=== PATIENT | male | born 1945 | race Hispanic/Latino ===

== ENCOUNTER 2022-01-16 10:06 | Inpatient (IN) | payer MEDICARE, MEDICAID ==
[2022-01-16 10:42] LABS: #Eosinphils 0.1 10x3/uL (0.0-0.5); #Monocytes 0.2 10x3/uL (0.0-1.1); #Neutrophils 11.8 10x3/uL (1.5-8.4); %Basophils 0.3 % (0.0-2.0); %Eosinophils 0.4 % (0.0-6.0); %Lymphocytes 4.8 % (18.0-47.0); %Monocytes 1.7 % (0.0-10.0); %Neutrophils 92.3 % (40.0-75.0); Hemoglobin 10.3 g/dL (13.5-17.5); Mean Corpuscular HGB CONC 33.6 g/dL (32.0-36.0); Mean Corpuscular Hemoglobin 29.5 pg (27.0-33.0); Mean Platelet Volume 9.7 fl (7.4-10.4); Platelet Count 323 10x3/uL (150-450); RBC Distribution Width 11.6 % (11.5-14.5); Red Blood Cell (RBC) Count 3.49 10x6/uL (4.32-5.72); White Blood Cell (WBC) Count 12.8 10x3/uL (3.5-10.5)
[2022-01-16 10:48] LABS: ALT (SGPT) 10 U/L (8-55); AST (SGOT) 10 U/L (5-34); Alkaline Phosphatase 109 U/L (40-110); Anion Gap 18 mmol/L (10-20); BUN (Urea Nitrogen) 26 mg/dL (8.4-25.7); Bilirubin, Total 0.9 mg/dL (0.2-1.2); Calc. Creatinine Clearance 0 mL/min (70-130); Calcium 8.5 mg/dL (7.8-10.44); Carbon Dioxide 20 mmol/L (23-31); Chloride 98 mmol/L (98-107); Globulin 3.2 g/dL (2.4-3.5); Glucose 396 mg/dL (83-110); Protein, Total 6.2 g/dL (5.8-8.1); Sodium 132 mmol/L (136-145)
[2022-01-16 10:51] LABS: PTT 23.4 sec (22.0-33.0); Prothrombin Time 10.8 sec (9.5-12.1)
[2022-01-16 11:20] LABS: SARS-CoV-2 NAA Rapid Test DETECTED (NotDetected)
[2022-01-16 11:29] LABS: Bilirubin Neg (Negative); Blood, Urine 50 (Negative); Clarity Cloudy (Clear); Glucose, Urine (Dipstick) >=1000 mg/dL (Negative); Ketone, Urine Negative (Negative); Leukocyte 500 (Negative); Nitrite Negative (Negative); Protein, Urine (Dipstick) 100 mg/dl (Neg-Trace); Specific Gravity, Urine 1.015 (1.002-1.036); Urobilinogen Normal mg/dL (Less than 2)
[2022-01-16 11:44] LABS: Squamous Epithelial 0-3 HPF (0-3); WBC/HPF Greater Than 50 HPF (0-3)
[2022-01-16 11:45] LABS: Bacteria/HPF 4+ HPF (None Seen)
[2022-01-16] MEDS ORDERED: Dextrose 50% Abboject 50 ML SYRINGE SLOW IVP PRN (12:28)
[2022-01-16] MEDS ORDERED: Ondansetron PF 4 MG/2 ML Vial IVP PRN (12:28)
[2022-01-16] MEDS ORDERED: Dextrose 5% in Water 1,000 ML IV PRN (12:28)
[2022-01-16] MEDS ORDERED: Acetaminophen 650 MG Suppository PR PRN (12:28)
[2022-01-16] MEDS ORDERED: Ondansetron ODT 4 MG TAB PO PRN (12:28)
[2022-01-16] MEDS ORDERED: Ventolin HFA Inhaler 60 PUFF INHALER INH PRN (12:41)
[2022-01-16] MEDS ORDERED: cefTRIAXone\\ROCEPHIN 2 GM VIAL ONE (12:51)
[2022-01-16 13:13] LABS: Lactic Acid 2.4 mmol/L (0.5-2.2)
[2022-01-16 14:36] VITALS: BMI 29.5
[2022-01-16 14:53] LABS: Troponin I 0.039 ng/mL (< 0.028)
[2022-01-16] MEDS ORDERED: Labetalol HCl 100 MG/20 ML VIAL ONE (15:41)
[2022-01-16] MEDS ORDERED: Aspirin 325 MG TAB ONE (15:46)
[2022-01-16] MEDS ORDERED: Labetalol HCl 100 MG/20 ML VIAL SLOW IVP PRN (15:51)
[2022-01-16 16:56] LABS: Troponin I 0.057 ng/mL (< 0.028)
[2022-01-16] MEDS: Sodium Chloride 0.9% 1,000 ML IV SCH ×2 (17:27→22:16)
[2022-01-16 19:36] LABS: Troponin I 0.116 ng/mL (< 0.028)
[2022-01-16] MEDS: Famotidine 20 MG TAB PO SCH (20:08)
[2022-01-16] MEDS: Acetaminophen 325 MG TAB PO PRN (20:09)
[2022-01-16] MEDS: Benzonatate 100 MG CAP PO PRN (20:09)
[2022-01-16] MEDS: Atorvastatin Calcium 20 MG TAB PO SCH (20:10)
[2022-01-16] MEDS: HumaLOG 300 UNITS/3 ML VIAL SC PRN (20:10)
[2022-01-16] MEDS ORDERED: Sodium Chloride 0.9% 500 ML IV SCH (22:00)
[2022-01-16 22:55] LABS: Troponin I 0.129 ng/mL (< 0.028)
[2022-01-17 05:16] LABS: ALT (SGPT) 7 U/L (8-55); AST (SGOT) 13 U/L (5-34); Albumin 2.5 g/dL (3.4-4.8); Alkaline Phosphatase 85 U/L (40-110); Anion Gap 16 mmol/L (10-20); BUN (Urea Nitrogen) 30 mg/dL (8.4-25.7); Bilirubin, Total 0.4 mg/dL (0.2-1.2); Calc. Creatinine Clearance 42 mL/min (70-130); Calcium 7.7 mg/dL (7.8-10.44); Carbon Dioxide 19 mmol/L (23-31); Chloride 103 mmol/L (98-107); Glucose 344 mg/dL (83-110); Potassium 4.2 mmol/L (3.5-5.1); Protein, Total 5.5 g/dL (5.8-8.1); Sodium 134 mmol/L (136-145)
[2022-01-17] MEDS: HumaLOG 300 UNITS/3 ML VIAL SC PRN ×4 (05:36→21:40)
[2022-01-17 08:34] LABS: Hemoglobin 9.5 g/dL (13.5-17.5); Mean Corpuscular HGB CONC 35.4 g/dL (32.0-36.0); Mean Corpuscular Hemoglobin 30.6 pg (27.0-33.0); Mean Corpuscular Volume 86.5 fl (81.2-95.1); Mean Platelet Volume 10.4 fl (7.4-10.4); RBC Distribution Width 12.2 % (11.5-14.5)
[2022-01-17 08:35] LABS: MDiff Complete? YES; Platelet Count 247 10x3/uL (150-450)
[2022-01-17] MEDS: Enoxaparin Sodium 30 MG/0.3 ML SYRINGE SC SCH (08:38)
[2022-01-17] MEDS: Sodium Chloride 0.9% 1,000 ML IV SCH ×2 (08:40→17:34)
[2022-01-17] MEDS: Citalopram 20 MG TAB PO SCH (08:40)
[2022-01-17 08:49] LABS: Band 29 % (5-11); Lymphocytes 4 % (21-51); Monocytes 5 % (0-10); Neutrophil 61 % (42-75); Reactive Lymphocytes 1 % (0-10)
[2022-01-17 08:50] LABS: Platelet Morphology Comment Appears Adequate
[2022-01-17 08:52] LABS: RBC Morphology Normal
[2022-01-17] MEDS ORDERED: Furosemide 20 MG TAB PO SCH (09:00)
[2022-01-17] MEDS ORDERED: Lisinopril 5 MG TAB PO SCH (09:00)
[2022-01-17] MEDS ORDERED: Dexamethasone 6 MG in Sodium Chloride 0.9% 50 ML IVPB SCH (09:13)
[2022-01-17] MEDS: Doxycycline 100 MG in Sodium Chloride 0.9% 100 ML IVPB SCH ×2 (11:27→20:00)
[2022-01-17] MEDS ORDERED: cefTRIAXone\\ROCEPHIN 2 GM in Sodium Chloride 0.9% 100 ML IVPB SCH (12:00)
[2022-01-17] MEDS ORDERED: cefTRIAXone\\ROCEPHIN 1 GM in Sodium Chloride 0.9% 100 ML IVPB SCH (12:00)
[2022-01-17] MEDS ORDERED: Meropenem 1 GM in Sodium Chloride 0.9% 100 ML IVPB SCH (13:00)
[2022-01-17] MEDS: Atorvastatin Calcium 20 MG TAB PO SCH (21:39)
[2022-01-17] MEDS: Famotidine 20 MG TAB PO SCH (21:39)
[2022-01-17] MEDS: Acetaminophen 325 MG TAB PO PRN (21:39)
[2022-01-17] MEDS: Meropenem 1 GM in Sodium Chloride 0.9% 100 ML IVPB SCH (21:40)
[2022-01-17] MEDS: Benzonatate 100 MG CAP PO PRN (21:42)
[2022-01-18] MEDS: Acetaminophen 325 MG TAB PO PRN ×2 (02:01→21:50)
[2022-01-18 04:15] LABS: Hemoglobin 9.1 g/dL (13.5-17.5); Mean Corpuscular HGB CONC 33.7 g/dL (32.0-36.0); Mean Corpuscular Hemoglobin 30.1 pg (27.0-33.0); Mean Corpuscular Volume 89.4 fl (81.2-95.1); Mean Platelet Volume 10.4 fl (7.4-10.4); Platelet Count 219 10x3/uL (150-450); RBC Distribution Width 12.1 % (11.5-14.5); Red Blood Cell (RBC) Count 3.02 10x6/uL (4.32-5.72); White Blood Cell (WBC) Count 30.2 10x3/uL (3.5-10.5)
[2022-01-18 04:32] LABS: Anion Gap 16 mmol/L (10-20); BUN (Urea Nitrogen) 28 mg/dL (8.4-25.7); CRP (Inflammatory) 23.19 mg/dL (= or < 0.5); Calc. Creatinine Clearance 53 mL/min (70-130); Calcium 7.6 mg/dL (7.8-10.44); Carbon Dioxide 17 mmol/L (23-31); Chloride 104 mmol/L (98-107); Glucose 259 mg/dL (83-110); Potassium 3.7 mmol/L (3.5-5.1); Sodium 133 mmol/L (136-145)
[2022-01-18] MEDS: Sodium Chloride 0.9% 1,000 ML IV SCH ×3 (04:44→21:48)
[2022-01-18] MEDS: HumaLOG 300 UNITS/3 ML VIAL SC PRN ×3 (05:11→21:51)
[2022-01-18 05:23] LABS: MDiff Complete? YES
[2022-01-18 05:29] LABS: Band 15 % (5-11); Eosinophils 2 % (0-10); Lymphocytes 4 % (21-51); Metamyelocyte 6 % (0-0); Monocytes 6 % (0-10); Neutrophil 67 % (42-75)
[2022-01-18 05:31] LABS: Platelet Morphology Comment Appears Adequate; RBC Morphology Normal
[2022-01-18] MEDS ORDERED: BARICITINIB 2 MG TAB PO SCH (09:00)
[2022-01-18] MEDS ORDERED: Dexamethasone 4 mg/ml Vial SLOW IVP SCH (09:00)
[2022-01-18] MEDS ORDERED: Enoxaparin Sodium 30 MG/0.3 ML SYRINGE ONE (09:14)
[2022-01-18] MEDS: Enoxaparin Sodium 30 MG/0.3 ML SYRINGE SC SCH (09:44)
[2022-01-18] MEDS: Doxycycline 100 MG in Sodium Chloride 0.9% 100 ML IVPB SCH ×2 (09:44→20:40)
[2022-01-18] MEDS: Ascorbic Acid 500 mg Chewable Tablet PO SCH (09:44)
[2022-01-18] MEDS: Citalopram 20 MG TAB PO SCH (09:44)
[2022-01-18] MEDS: Zinc Sulfate 220 MG CAP PO SCH (09:44)
[2022-01-18] MEDS: Cholecalciferol (Vitamin D3) 400 UNITS TAB PO SCH (09:44)
[2022-01-18] MEDS: Meropenem 1 GM in Sodium Chloride 0.9% 100 ML IVPB SCH ×2 (13:17→21:51)
[2022-01-18] MEDS ORDERED: Lidocaine 5% Patch TD SCH (13:45)
[2022-01-18] MEDS: HYDROcodone/Acetaminophen 5/325 mg Tablet PO PRN (16:55)
[2022-01-18] MEDS: Lidocaine 5% Patch TD SCH (16:56)
[2022-01-18] MEDS: Benzonatate 100 MG CAP PO PRN (19:15)
[2022-01-18] MEDS: Carvedilol 3.125 MG TAB PO SCH (19:15)
[2022-01-18] MEDS: Famotidine 20 MG TAB PO SCH (21:49)
[2022-01-18] MEDS: Atorvastatin Calcium 20 MG TAB PO SCH (21:50)
[2022-01-18] MEDS: Lisinopril 10 MG TAB PO SCH (21:50)
[2022-01-19] MEDS: Benzonatate 100 MG CAP PO PRN (00:46)
[2022-01-19] MEDS: Transdermal Patch Removal TOP SCH (01:56)
[2022-01-19 04:33] LABS: Hemoglobin 10.3 g/dL (13.5-17.5); Mean Corpuscular HGB CONC 33.8 g/dL (32.0-36.0); Mean Corpuscular Hemoglobin 29.8 pg (27.0-33.0); Mean Corpuscular Volume 88.2 fl (81.2-95.1); Mean Platelet Volume 10.4 fl (7.4-10.4); Platelet Count 260 10x3/uL (150-450); RBC Distribution Width 11.9 % (11.5-14.5); Red Blood Cell (RBC) Count 3.46 10x6/uL (4.32-5.72); White Blood Cell (WBC) Count 20.7 10x3/uL (3.5-10.5)
[2022-01-19 04:52] LABS: Anion Gap 16 mmol/L (10-20); BUN (Urea Nitrogen) 31 mg/dL (8.4-25.7); CRP (Inflammatory) 16.32 mg/dL (= or < 0.5); Calc. Creatinine Clearance 58 mL/min (70-130); Calcium 8.1 mg/dL (7.8-10.44); Carbon Dioxide 18 mmol/L (23-31); Chloride 104 mmol/L (98-107); Glucose 270 mg/dL (83-110); Potassium 4.4 mmol/L (3.5-5.1); Sodium 134 mmol/L (136-145)
[2022-01-19] MEDS: HumaLOG 300 UNITS/3 ML VIAL SC PRN ×3 (05:47→21:08)
[2022-01-19 06:34] LABS: Anisocytosis SLIGHT = 6-15 cells (100X) (0-5/hpf); MDiff Complete? YES; Platelet Morphology Comment Appears Adequate; Poikilocytosis SLIGHT = 6-15 cells (100X) (0-5/hpf)
[2022-01-19 06:36] LABS: Band 9 % (5-11); Lymphocytes 4 % (21-51); Monocytes 6 % (0-10); Neutrophil 81 % (42-75)
[2022-01-19] MEDS ORDERED: Enoxaparin Sodium 30 MG/0.3 ML SYRINGE ONE ×2 (09:58)
[2022-01-19] MEDS: Doxycycline 100 MG in Sodium Chloride 0.9% 100 ML IVPB SCH ×2 (10:07→21:08)
[2022-01-19] MEDS: Zinc Sulfate 220 MG CAP PO SCH (10:07)
[2022-01-19] MEDS: Meropenem 1 GM in Sodium Chloride 0.9% 100 ML IVPB SCH ×2 (10:07→21:07)
[2022-01-19] MEDS: Lisinopril 10 MG TAB PO SCH ×2 (10:07→21:07)
[2022-01-19] MEDS: Cholecalciferol (Vitamin D3) 400 UNITS TAB PO SCH (10:08)
[2022-01-19] MEDS: Ascorbic Acid 500 mg Chewable Tablet PO SCH (10:08)
[2022-01-19] MEDS: Carvedilol 3.125 MG TAB PO SCH ×2 (10:08→19:51)
[2022-01-19] MEDS: Citalopram 20 MG TAB PO SCH (10:08)
[2022-01-19] MEDS: Enoxaparin Sodium 30 MG/0.3 ML SYRINGE SC SCH (10:08)
[2022-01-19] MEDS: Lidocaine 5% Patch TD SCH (14:25)
[2022-01-19] MEDS: Sodium Chloride 0.9% 1,000 ML IV SCH (19:52)
[2022-01-19] MEDS: Famotidine 20 MG TAB PO SCH (21:06)
[2022-01-19] MEDS: Atorvastatin Calcium 20 MG TAB PO SCH (21:06)
[2022-01-19] MEDS: HYDROcodone/Acetaminophen 5/325 mg Tablet PO PRN (21:07)
[2022-01-20] MEDS: Transdermal Patch Removal TOP SCH (01:50)
[2022-01-20 04:47] LABS: #Monocytes 1.4 10x3/uL (0.0-1.1); #Neutrophils 15.2 10x3/uL (1.5-8.4); %Basophils 0.2 % (0.0-2.0); %Eosinophils 0.2 % (0.0-6.0); %Lymphocytes 8.2 % (18.0-47.0); %Monocytes 7.5 % (0.0-10.0); Hemoglobin 9.7 g/dL (13.5-17.5); Mean Corpuscular HGB CONC 33.6 g/dL (32.0-36.0); Mean Corpuscular Hemoglobin 29.7 pg (27.0-33.0); Mean Corpuscular Volume 88.4 fl (81.2-95.1); Mean Platelet Volume 10.3 fl (7.4-10.4); Platelet Count 255 10x3/uL (150-450); RBC Distribution Width 11.9 % (11.5-14.5); Red Blood Cell (RBC) Count 3.27 10x6/uL (4.32-5.72); White Blood Cell (WBC) Count 18.4 10x3/uL (3.5-10.5)
[2022-01-20 04:49] LABS: Anion Gap 15 mmol/L (10-20); BUN (Urea Nitrogen) 29 mg/dL (8.4-25.7); CRP (Inflammatory) 6.05 mg/dL (= or < 0.5); Calc. Creatinine Clearance 62 mL/min (70-130); Calcium 7.8 mg/dL (7.8-10.44); Carbon Dioxide 18 mmol/L (23-31); Chloride 105 mmol/L (98-107); Glucose 247 mg/dL (83-110); Potassium 3.6 mmol/L (3.5-5.1); Sodium 134 mmol/L (136-145)
[2022-01-20] MEDS: HumaLOG 300 UNITS/3 ML VIAL SC PRN ×3 (06:46→17:44)
[2022-01-20] MEDS: Meropenem 1 GM in Sodium Chloride 0.9% 100 ML IVPB SCH ×2 (08:51→21:04)
[2022-01-20] MEDS: Carvedilol 3.125 MG TAB PO SCH ×2 (08:51→17:45)
[2022-01-20] MEDS: Zinc Sulfate 220 MG CAP PO SCH (08:52)
[2022-01-20] MEDS: Cholecalciferol (Vitamin D3) 400 UNITS TAB PO SCH (08:52)
[2022-01-20] MEDS: Lisinopril 10 MG TAB PO SCH ×2 (08:52→21:05)
[2022-01-20] MEDS: Citalopram 20 MG TAB PO SCH (08:52)
[2022-01-20] MEDS: Ascorbic Acid 500 mg Chewable Tablet PO SCH (08:52)
[2022-01-20] MEDS: Enoxaparin Sodium 30 MG/0.3 ML SYRINGE SC SCH (08:52)
[2022-01-20] MEDS: Lidocaine 5% Patch TD SCH ×2 (13:22→17:30)
[2022-01-20] MEDS: Acetaminophen 325 MG TAB PO PRN (17:43)
[2022-01-20] MEDS: Atorvastatin Calcium 20 MG TAB PO SCH (21:05)
[2022-01-20] MEDS: Famotidine 20 MG TAB PO SCH (21:05)
[2022-01-21] MEDS: Transdermal Patch Removal TOP SCH (02:13)
[2022-01-21 04:48] LABS: #Eosinphils 0.3 10x3/uL (0.0-0.5); #Monocytes 1.8 10x3/uL (0.0-1.1); #Neutrophils 8.8 10x3/uL (1.5-8.4); %Basophils 0.1 % (0.0-2.0); %Eosinophils 2.6 % (0.0-6.0); %Lymphocytes 14.2 % (18.0-47.0); %Neutrophils 67.6 % (40.0-75.0); Hemoglobin 9.3 g/dL (13.5-17.5); Mean Corpuscular Volume 85.8 fl (81.2-95.1); Platelet Count 224 10x3/uL (150-450); RBC Distribution Width 11.9 % (11.5-14.5)
[2022-01-21 05:12] LABS: Anion Gap 13 mmol/L (10-20); BUN (Urea Nitrogen) 26 mg/dL (8.4-25.7); CRP (Inflammatory) 4.85 mg/dL (= or < 0.5); Calc. Creatinine Clearance 63 mL/min (70-130); Calcium 7.6 mg/dL (7.8-10.44); Carbon Dioxide 21 mmol/L (23-31); Chloride 103 mmol/L (98-107); Glucose 180 mg/dL (83-110); Potassium 3.5 mmol/L (3.5-5.1); Sodium 133 mmol/L (136-145)
[2022-01-21] MEDS: Lisinopril 10 MG TAB PO SCH ×2 (09:18→22:18)
[2022-01-21] MEDS: Carvedilol 3.125 MG TAB PO SCH ×2 (09:18→17:06)
[2022-01-21] MEDS: Citalopram 20 MG TAB PO SCH (09:19)
[2022-01-21] MEDS: Zinc Sulfate 220 MG CAP PO SCH (09:19)
[2022-01-21] MEDS: Enoxaparin Sodium 30 MG/0.3 ML SYRINGE SC SCH (09:19)
[2022-01-21] MEDS: Cholecalciferol (Vitamin D3) 400 UNITS TAB PO SCH (09:19)
[2022-01-21] MEDS: Ascorbic Acid 500 mg Chewable Tablet PO SCH (09:19)
[2022-01-21] MEDS: Meropenem 1 GM in Sodium Chloride 0.9% 100 ML IVPB SCH ×2 (09:26→22:17)
[2022-01-21] MEDS: HumaLOG 300 UNITS/3 ML VIAL SC PRN (11:40)
[2022-01-21] MEDS: Lidocaine 5% Patch TD SCH (17:29)
[2022-01-21] MEDS: Atorvastatin Calcium 20 MG TAB PO SCH (22:18)
[2022-01-21] MEDS: Famotidine 20 MG TAB PO SCH (22:18)
[2022-01-22] MEDS: Transdermal Patch Removal TOP SCH (03:00)
[2022-01-22 04:50] LABS: Hemoglobin 9.5 g/dL (13.5-17.5); Mean Corpuscular HGB CONC 35.1 g/dL (32.0-36.0); Mean Corpuscular Hemoglobin 29.9 pg (27.0-33.0); Mean Corpuscular Volume 85.2 fl (81.2-95.1); Mean Platelet Volume 10.1 fl (7.4-10.4); Platelet Count 250 10x3/uL (150-450); RBC Distribution Width 11.8 % (11.5-14.5); Red Blood Cell (RBC) Count 3.18 10x6/uL (4.32-5.72); White Blood Cell (WBC) Count 10.2 10x3/uL (3.5-10.5)
[2022-01-22 05:06] LABS: Anion Gap 15 mmol/L (10-20); BUN (Urea Nitrogen) 22 mg/dL (8.4-25.7); Calc. Creatinine Clearance 75 mL/min (70-130); Calcium 7.8 mg/dL (7.8-10.44); Carbon Dioxide 22 mmol/L (23-31); Chloride 102 mmol/L (98-107); Glucose 132 mg/dL (83-110); Potassium 3.6 mmol/L (3.5-5.1); Sodium 135 mmol/L (136-145)
[2022-01-22 05:36] LABS: MDiff Complete? YES
[2022-01-22 05:39] LABS: Band 3 % (5-11); Burr Cells SLIGHT = 2-5 cells (100X) (0-1/hpf); Eosinophils 3 % (0-10); Lymphocytes 12 % (21-51); Monocytes 18 % (0-10); Neutrophil 62 % (42-75); Reactive Lymphocytes 2 % (0-10)
[2022-01-22 05:40] LABS: Platelet Morphology Comment Appears Adequate
[2022-01-22] MEDS: Enoxaparin Sodium 30 MG/0.3 ML SYRINGE SC SCH (08:54)
[2022-01-22] MEDS: Meropenem 1 GM in Sodium Chloride 0.9% 100 ML IVPB SCH ×2 (08:54→18:44)
[2022-01-22] MEDS: Cholecalciferol (Vitamin D3) 400 UNITS TAB PO SCH (08:55)
[2022-01-22] MEDS: Zinc Sulfate 220 MG CAP PO SCH (08:55)
[2022-01-22] MEDS: Carvedilol 3.125 MG TAB PO SCH ×2 (08:55→18:44)
[2022-01-22] MEDS: Citalopram 20 MG TAB PO SCH (08:55)
[2022-01-22] MEDS: Ascorbic Acid 500 mg Chewable Tablet PO SCH (08:55)
[2022-01-22] MEDS: Lisinopril 10 MG TAB PO SCH ×2 (08:55→22:09)
[2022-01-22] MEDS: HumaLOG 300 UNITS/3 ML VIAL SC PRN ×2 (13:30→18:10)
[2022-01-22] MEDS: Lidocaine 5% Patch TD SCH (18:46)
[2022-01-22] MEDS: Atorvastatin Calcium 20 MG TAB PO SCH (22:09)
[2022-01-22] MEDS: Famotidine 20 MG TAB PO SCH (22:10)
[2022-01-22] MEDS: Acetaminophen 325 MG TAB PO PRN (22:12)
[2022-01-23] MEDS: Meropenem 1 GM in Sodium Chloride 0.9% 100 ML IVPB SCH ×4 (00:45→23:35)
[2022-01-23] MEDS: Transdermal Patch Removal TOP SCH (01:04)
[2022-01-23 08:36] LABS: #Eosinphils 0.5 10x3/uL (0.0-0.5); #Monocytes 1.5 10x3/uL (0.0-1.1); #Neutrophils 7.1 10x3/uL (1.5-8.4); %Basophils 0.3 % (0.0-2.0); %Eosinophils 4.6 % (0.0-6.0); %Lymphocytes 16.6 % (18.0-47.0); %Monocytes 13.5 % (0.0-10.0); %Neutrophils 63.3 % (40.0-75.0); Hemoglobin 10.3 g/dL (13.5-17.5); Mean Corpuscular HGB CONC 35.2 g/dL (32.0-36.0); Mean Corpuscular Hemoglobin 29.9 pg (27.0-33.0); Mean Corpuscular Volume 84.9 fl (81.2-95.1); Mean Platelet Volume 9.8 fl (7.4-10.4); Platelet Count 281 10x3/uL (150-450); RBC Distribution Width 11.9 % (11.5-14.5); Red Blood Cell (RBC) Count 3.45 10x6/uL (4.32-5.72); White Blood Cell (WBC) Count 11.3 10x3/uL (3.5-10.5)
[2022-01-23] MEDS: Lisinopril 10 MG TAB PO SCH ×2 (08:47→21:04)
[2022-01-23] MEDS: Enoxaparin Sodium 30 MG/0.3 ML SYRINGE SC SCH (08:47)
[2022-01-23] MEDS: Ascorbic Acid 500 mg Chewable Tablet PO SCH (08:47)
[2022-01-23] MEDS: Carvedilol 3.125 MG TAB PO SCH ×2 (08:47→18:18)
[2022-01-23] MEDS: Cholecalciferol (Vitamin D3) 400 UNITS TAB PO SCH (08:47)
[2022-01-23] MEDS: Zinc Sulfate 220 MG CAP PO SCH (08:48)
[2022-01-23] MEDS: Citalopram 20 MG TAB PO SCH (08:48)
[2022-01-23 08:52] LABS: ALT (SGPT) 13 U/L (8-55); AST (SGOT) 15 U/L (5-34); Albumin 2.4 g/dL (3.4-4.8); Alkaline Phosphatase 72 U/L (40-110); Anion Gap 12 mmol/L (10-20); BUN (Urea Nitrogen) 18 mg/dL (8.4-25.7); Bilirubin, Total 0.5 mg/dL (0.2-1.2); Calc. Creatinine Clearance 74 mL/min (70-130); Calcium 8.1 mg/dL (7.8-10.44); Carbon Dioxide 25 mmol/L (23-31); Chloride 101 mmol/L (98-107); Estimated GFR 72; Globulin 3.2 g/dL (2.4-3.5); Glucose 196 mg/dL (83-110); Magnesium 1.9 mg/dL (1.6-2.6); Potassium 3.4 mmol/L (3.5-5.1); Protein, Total 5.6 g/dL (5.8-8.1); Sodium 135 mmol/L (136-145)
[2022-01-23 09:14] LABS: Syphilis Antibody Nonreactive (Nonreactive); Syphilis Antibody Index 0.03 S/CO (<1.00 Non-Reactive)
[2022-01-23 09:15] LABS: HIV (1/2) Antibody/Antigen Non-Reactive (NonReactive); HIV 1/2 INDEX 0.05 S/CO (<1.00)
[2022-01-23] MEDS ORDERED: Potassium Chloride 20 MEQ TAB PO SCH (12:00)
[2022-01-23 12:52] LABS: Hemoglobin A1c 12.6 % (4.0-6.0)
[2022-01-23 13:04] LABS: Creatinine, Urine 27.56 mg/dL (63-166)
[2022-01-23 14:33] LABS: Vitamin B12 724 pg/mL (211-911)
[2022-01-23] MEDS: Lidocaine 5% Patch TD SCH (18:30)
[2022-01-23] MEDS: HumaLOG 300 UNITS/3 ML VIAL SC PRN (18:39)
[2022-01-23] MEDS: Famotidine 20 MG TAB PO SCH (20:41)
[2022-01-23] MEDS: Atorvastatin Calcium 20 MG TAB PO SCH (20:42)
[2022-01-24] MEDS: Transdermal Patch Removal TOP SCH (02:20)
[2022-01-24 05:55] LABS: Anion Gap 13 mmol/L (10-20); BUN (Urea Nitrogen) 19 mg/dL (8.4-25.7); CRP (Inflammatory) 2.81 mg/dL (= or < 0.5); Calc. Creatinine Clearance 69 mL/min (70-130); Calcium 8.1 mg/dL (7.8-10.44); Carbon Dioxide 27 mmol/L (23-31); Cardiac Risk 4.1 (Less than 4.5); Chloride 101 mmol/L (98-107); Cholesterol 81 mg/dl (< 200 Desired); Estimated GFR 67; Glucose 193 mg/dL (83-110); HDL Cholesterol 20 mg/dL (>60 Neg Risk); LDL Cholesterol, Calculated 44 mg/dL; Magnesium 1.9 mg/dL (1.6-2.6); Potassium 4.7 mmol/L (3.5-5.1); Sodium 136 mmol/L (136-145); Triglycerides 85 mg/dL (Less than 150)
[2022-01-24 05:59] LABS: %Lymphocytes 16.4 % (18.0-47.0); Hemoglobin 9.8 g/dL (13.5-17.5); Mean Corpuscular HGB CONC 34.9 g/dL (32.0-36.0); Mean Corpuscular Hemoglobin 30.1 pg (27.0-33.0); Mean Corpuscular Volume 86.2 fl (81.2-95.1); Mean Platelet Volume 10.2 fl (7.4-10.4); Platelet Count 326 10x3/uL (150-450); RBC Distribution Width 11.8 % (11.5-14.5); Red Blood Cell (RBC) Count 3.26 10x6/uL (4.32-5.72); White Blood Cell (WBC) Count 12.4 10x3/uL (3.5-10.5)
[2022-01-24 06:00] LABS: #Eosinphils 0.5 10x3/uL (0.0-0.5); #Monocytes 1.5 10x3/uL (0.0-1.1); #Neutrophils 8.2 10x3/uL (1.5-8.4); %Basophils 0.2 % (0.0-2.0); %Eosinophils 4.3 % (0.0-6.0); %Monocytes 11.7 % (0.0-10.0)
[2022-01-24] MEDS: HumaLOG 300 UNITS/3 ML VIAL SC PRN (06:30)
[2022-01-24] MEDS: Ascorbic Acid 500 mg Chewable Tablet PO SCH (08:39)
[2022-01-24] MEDS: Cholecalciferol (Vitamin D3) 400 UNITS TAB PO SCH (08:39)
[2022-01-24] MEDS: Citalopram 20 MG TAB PO SCH (08:39)
[2022-01-24] MEDS: Enoxaparin Sodium 40 MG/0.4 ML SYRINGE SC SCH (08:39)
[2022-01-24] MEDS: Meropenem 1 GM in Sodium Chloride 0.9% 100 ML IVPB SCH ×2 (08:39→18:13)
[2022-01-24] MEDS: Lisinopril 10 MG TAB PO SCH ×2 (08:39→20:22)
[2022-01-24] MEDS: Carvedilol 3.125 MG TAB PO SCH ×2 (08:40→18:14)
[2022-01-24] MEDS: Zinc Sulfate 220 MG CAP PO SCH (08:40)
[2022-01-24] MEDS: Lidocaine 5% Patch TD SCH (14:00)
[2022-01-24] MEDS: Atorvastatin Calcium 20 MG TAB PO SCH (20:22)
[2022-01-24] MEDS: Famotidine 20 MG TAB PO SCH (20:22)
[2022-01-25] MEDS: Meropenem 1 GM in Sodium Chloride 0.9% 100 ML IVPB SCH ×4 (00:11→23:30)
[2022-01-25] MEDS: Transdermal Patch Removal TOP SCH (01:22)
[2022-01-25] MEDS: HumaLOG 300 UNITS/3 ML VIAL SC PRN (04:56)
[2022-01-25 05:39] LABS: Anion Gap 15 mmol/L (10-20); BUN (Urea Nitrogen) 17 mg/dL (8.4-25.7); Calc. Creatinine Clearance 77 mL/min (70-130); Calcium 7.9 mg/dL (7.8-10.44); Carbon Dioxide 20 mmol/L (23-31); Chloride 100 mmol/L (98-107); Estimated GFR 75; Glucose 168 mg/dL (83-110); Magnesium 1.8 mg/dL (1.6-2.6); Potassium 4.2 mmol/L (3.5-5.1); Sodium 131 mmol/L (136-145)
[2022-01-25 06:28] LABS: #Eosinphils 0.4 10x3/uL (0.0-0.5); %Basophils 0.3 % (0.0-2.0); %Eosinophils 3.4 % (0.0-6.0); %Lymphocytes 15.8 % (18.0-47.0); %Monocytes 8.2 % (0.0-10.0); %Neutrophils 71.2 % (40.0-75.0); Hemoglobin 9.9 g/dL (13.5-17.5); Mean Corpuscular HGB CONC 34.4 g/dL (32.0-36.0); Mean Corpuscular Hemoglobin 29.5 pg (27.0-33.0); Mean Corpuscular Volume 85.7 fl (81.2-95.1); Mean Platelet Volume 9.8 fl (7.4-10.4); Platelet Count 356 10x3/uL (150-450); RBC Distribution Width 11.9 % (11.5-14.5); Red Blood Cell (RBC) Count 3.36 10x6/uL (4.32-5.72); White Blood Cell (WBC) Count 12.6 10x3/uL (3.5-10.5)
[2022-01-25] MEDS: Carvedilol 3.125 MG TAB PO SCH ×2 (08:29→18:45)
[2022-01-25] MEDS: Enoxaparin Sodium 40 MG/0.4 ML SYRINGE SC SCH (08:29)
[2022-01-25] MEDS: Citalopram 20 MG TAB PO SCH (08:29)
[2022-01-25] MEDS: Zinc Sulfate 220 MG CAP PO SCH (08:29)
[2022-01-25] MEDS: Lisinopril 10 MG TAB PO SCH ×2 (08:29→20:40)
[2022-01-25] MEDS: Ascorbic Acid 500 mg Chewable Tablet PO SCH (08:29)
[2022-01-25] MEDS: Cholecalciferol (Vitamin D3) 400 UNITS TAB PO SCH (08:29)
[2022-01-25] MEDS: Lidocaine 5% Patch TD SCH (14:00)
[2022-01-25] MEDS: Famotidine 20 MG TAB PO SCH (20:40)
[2022-01-25] MEDS: Atorvastatin Calcium 20 MG TAB PO SCH (20:40)
[2022-01-25] MEDS ORDERED: Fluticasone Propionate HFA 44 MCG AER INH SCH (21:00)
[2022-01-25] MEDS: Mometasone 100 MCG/PUFF (1 INHALER) INH SCH (22:36)
[2022-01-26] MEDS: Transdermal Patch Removal TOP SCH (02:45)
[2022-01-26 05:27] LABS: #Basophils 0.1 10x3/uL (0.0-0.2); #Eosinphils 0.4 10x3/uL (0.0-0.5); #Monocytes 1.2 10x3/uL (0.0-1.1); #Neutrophils 9.3 10x3/uL (1.5-8.4); %Basophils 0.5 % (0.0-2.0); %Eosinophils 3.1 % (0.0-6.0); %Lymphocytes 15.6 % (18.0-47.0); %Monocytes 8.9 % (0.0-10.0); %Neutrophils 70.8 % (40.0-75.0); Hemoglobin 10.2 g/dL (13.5-17.5); Mean Corpuscular HGB CONC 34.2 g/dL (32.0-36.0); Mean Corpuscular Hemoglobin 29.7 pg (27.0-33.0); Mean Corpuscular Volume 86.6 fl (81.2-95.1); Mean Platelet Volume 9.9 fl (7.4-10.4); Platelet Count 399 10x3/uL (150-450); RBC Distribution Width 11.9 % (11.5-14.5); Red Blood Cell (RBC) Count 3.44 10x6/uL (4.32-5.72); White Blood Cell (WBC) Count 13.2 10x3/uL (3.5-10.5)
[2022-01-26 05:58] LABS: Anion Gap 14 mmol/L (10-20); BUN (Urea Nitrogen) 18 mg/dL (8.4-25.7); Calc. Creatinine Clearance 72 mL/min (70-130); Calcium 8.2 mg/dL (7.8-10.44); Carbon Dioxide 24 mmol/L (23-31); Chloride 98 mmol/L (98-107); Estimated GFR 69; Glucose 223 mg/dL (83-110); Magnesium 1.9 mg/dL (1.6-2.6); Potassium 3.9 mmol/L (3.5-5.1); Sodium 132 mmol/L (136-145)
[2022-01-26] MEDS: HumaLOG 300 UNITS/3 ML VIAL SC PRN (06:51)
[2022-01-26] MEDS: Meropenem 1 GM in Sodium Chloride 0.9% 100 ML IVPB SCH ×2 (09:48→17:05)
[2022-01-26] MEDS: Enoxaparin Sodium 40 MG/0.4 ML SYRINGE SC SCH (09:49)
[2022-01-26] MEDS: Cholecalciferol (Vitamin D3) 400 UNITS TAB PO SCH (09:49)
[2022-01-26] MEDS: Citalopram 20 MG TAB PO SCH (09:50)
[2022-01-26] MEDS: Carvedilol 3.125 MG TAB PO SCH ×2 (09:50→17:05)
[2022-01-26] MEDS: Zinc Sulfate 220 MG CAP PO SCH (09:50)
[2022-01-26] MEDS: Lisinopril 10 MG TAB PO SCH ×2 (09:50→21:50)
[2022-01-26] MEDS: Ascorbic Acid 500 mg Chewable Tablet PO SCH (09:50)
[2022-01-26] MEDS: Mometasone 100 MCG/PUFF (1 INHALER) INH SCH ×2 (10:50→22:53)
[2022-01-26] MEDS: Lidocaine 5% Patch TD SCH (17:05)
[2022-01-26] MEDS: Famotidine 20 MG TAB PO SCH (21:50)
[2022-01-26] MEDS: Atorvastatin Calcium 20 MG TAB PO SCH (21:50)
[2022-01-26] MEDS ORDERED: Meropenem 1 GM in Sodium Chloride 0.9% 100 ML IVPB SCH (23:00)
[2022-01-27] MEDS: Transdermal Patch Removal TOP SCH (02:00)
[2022-01-27] MEDS ORDERED: Meropenem 1 GM in Sodium Chloride 0.9% 100 ML IVPB SCH ×2 (06:00→13:00)
[2022-01-27 06:44] LABS: #Basophils 0.1 10x3/uL (0.0-0.2); #Eosinphils 0.4 10x3/uL (0.0-0.5); #Monocytes 1.3 10x3/uL (0.0-1.1); #Neutrophils 8.2 10x3/uL (1.5-8.4); %Basophils 0.6 % (0.0-2.0); %Lymphocytes 17.4 % (18.0-47.0); %Monocytes 10.6 % (0.0-10.0); %Neutrophils 67.6 % (40.0-75.0); Hemoglobin 9.4 g/dL (13.5-17.5); Mean Corpuscular HGB CONC 34.3 g/dL (32.0-36.0); Mean Corpuscular Hemoglobin 30.1 pg (27.0-33.0); Mean Corpuscular Volume 87.8 fl (81.2-95.1); Mean Platelet Volume 9.6 fl (7.4-10.4); Platelet Count 391 10x3/uL (150-450); RBC Distribution Width 12.2 % (11.5-14.5); Red Blood Cell (RBC) Count 3.12 10x6/uL (4.32-5.72); White Blood Cell (WBC) Count 12.1 10x3/uL (3.5-10.5)
[2022-01-27] MEDS: Mometasone 100 MCG/PUFF (1 INHALER) INH SCH (06:55)
[2022-01-27 06:58] LABS: Anion Gap 11 mmol/L (10-20); BUN (Urea Nitrogen) 20 mg/dL (8.4-25.7); Calc. Creatinine Clearance 67 mL/min (70-130); Carbon Dioxide 25 mmol/L (23-31); Chloride 101 mmol/L (98-107); Estimated GFR 64; Glucose 107 mg/dL (83-110); Magnesium 1.8 mg/dL (1.6-2.6); Potassium 3.8 mmol/L (3.5-5.1); Sodium 133 mmol/L (136-145)
[2022-01-27] MEDS: Citalopram 20 MG TAB PO SCH (13:06)
[2022-01-27] MEDS: Ascorbic Acid 500 mg Chewable Tablet PO SCH (13:06)
[2022-01-27] MEDS: Zinc Sulfate 220 MG CAP PO SCH (13:06)
[2022-01-27] MEDS: Cholecalciferol (Vitamin D3) 400 UNITS TAB PO SCH (13:06)
[2022-01-27] MEDS: Lisinopril 10 MG TAB PO SCH (13:06)
[2022-01-27] MEDS: Carvedilol 3.125 MG TAB PO SCH ×2 (13:06→16:44)
[2022-01-27] MEDS: Enoxaparin Sodium 40 MG/0.4 ML SYRINGE SC SCH (13:06)
[2022-01-27] MEDS: Lidocaine 5% Patch TD SCH (13:12)
[2022-01-27 18:00] VITALS: BP 147/49; TEMP 97.7
== END 2022-01-27 17:59 | disposition home or self-care (01) | DRG 871 ==
LOC: SUATTDRO 10:06 → CSHERS 10:06 → CSHTELE 13:21
PROVIDERS: ADMIT Family Medicine; ATTEND Family Medicine
PROC: 3E03329 Introduction of Other Anti-infective into Peripheral Vein, Percutaneous Approach (ICD-10-PCS; principal; 2022-01-16)
PROC: 8E0ZXY6 Isolation (ICD-10-PCS; 2022-01-16)
PROC: XW0DXM6 Introduction of Baricitinib into Mouth and Pharynx, External Approach, New Technology Group 6 (ICD-10-PCS; 2022-01-18)
DX: A41.51 Sepsis due to Escherichia coli [E. coli] (principal); U07.1 COVID-19; J96.01 Acute respiratory failure with hypoxia; J12.82 Pneumonia due to coronavirus disease 2019; G93.41 Metabolic encephalopathy; E87.1 Hypo-osmolality and hyponatremia; I13.0 Hypertensive heart and chronic kidney disease with heart failure and stage 1 through stage 4 chronic kidney disease, or unspecified chronic kidney disease; N17.9 Acute kidney failure, unspecified; N30.00 Acute cystitis without hematuria; Z16.12 Extended spectrum beta lactamase (ESBL) resistance; I50.32 Chronic diastolic (congestive) heart failure; E11.319 Type 2 diabetes mellitus with unspecified diabetic retinopathy without macular edema; R65.20 Severe sepsis without septic shock; R07.9 Chest pain, unspecified; J45.909 Unspecified asthma, uncomplicated; D63.1 Anemia in chronic kidney disease; H54.7 Unspecified visual loss; E78.00 Pure hypercholesterolemia, unspecified; N18.30 Chronic kidney disease, stage 3 unspecified; F32.A Depression, unspecified; Z79.899 Other long term (current) drug therapy; Z79.4 Long term (current) use of insulin; Z89.421 Acquired absence of other right toe(s); Z83.3 Family history of diabetes mellitus; Z80.9 Family history of malignant neoplasm, unspecified; Z82.49 Family history of ischemic heart disease and other diseases of the circulatory system; Z87.891 Personal history of nicotine dependence
CPT/HCPCS: 36415; 36416; 71045; 74176; 80048; 80053; 80061; 81003; 81015; 82570; 82607; 82746; 83036; 83605; 83735; 83880; 83930; 83935; 84145; 84300; 84443; 84484; 85025; 85610; 85652; 85730; 86140; 86780; 87040; 87077; 87086; 87149; 87186; 87389; 93005; 93010; 93306; 94664; 94760; 96374; J0696; J1100; J1650; J1815; J2185; J3490; J7030; J7050; U0002

== ENCOUNTER 2022-09-16 15:47 | Inpatient (IN) | payer MEDICARE, MEDICAID ==
[2022-09-16 16:40] LABS: #Eosinphils 0.2 10x3/uL (0.0-0.5); #Neutrophils 7.1 10x3/uL (1.5-8.4); %Basophils 0.4 % (0.0-2.0); %Eosinophils 2.2 % (0.0-6.0); %Lymphocytes 17.6 % (18.0-47.0); %Monocytes 9.7 % (0.0-10.0); %Neutrophils 69.3 % (40.0-75.0); Hemoglobin 9.8 g/dL (13.5-17.5); Mean Corpuscular HGB CONC 36.3 g/dL (32.0-36.0); Mean Corpuscular Hemoglobin 31.2 pg (27.0-33.0); Platelet Count 373 10x3/uL (150-450); RBC Distribution Width 12.7 % (11.5-14.5); Red Blood Cell (RBC) Count 3.14 10x6/uL (4.32-5.72); White Blood Cell (WBC) Count 10.3 10x3/uL (3.5-10.5)
[2022-09-16 16:41] LABS: Bilirubin Neg (Negative); Blood, Urine 150 (Negative); Clarity Cloudy (Clear); Glucose, Urine (Dipstick) Normal (Negative); Ketone, Urine Negative (Negative); Leukocyte 500 (Negative); Nitrite Negative (Negative); Protein, Urine (Dipstick) 100 mg/dl (Neg-Trace); Urobilinogen Normal mg/dL (Less than 2)
[2022-09-16 16:50] LABS: Bacteria/HPF 3+ HPF (None Seen); Squamous Epithelial 0-3 HPF (0-3); WBC/HPF Greater Than 50 HPF (0-3); Yeast-Hyphae 1+ HPF (None Seen)
[2022-09-16 16:51] LABS: Yeast-Budding 2+ HPF (None Seen)
[2022-09-16 16:54] LABS: INR-International Normal Ratio 0.9; PTT 26.5 sec (22.0-33.0); Prothrombin Time 10.3 sec (9.5-12.1)
[2022-09-16 17:31] LABS: SARS-CoV-2 NAA Rapid Test Not Detected (NotDetected)
[2022-09-16 17:39] LABS: ALT (SGPT) 11 U/L (8-55); AST (SGOT) 15 U/L (5-34); Alkaline Phosphatase 52 U/L (40-110); Anion Gap 15 mmol/L (10-20); BUN (Urea Nitrogen) 16 mg/dL (8.4-25.7); Bilirubin, Total 0.5 mg/dL (0.2-1.2); CK (CPK) 98 U/L (30-200); Calc. Creatinine Clearance 0 mL/min (70-130); Calcium 8.7 mg/dL (7.8-10.44); Carbon Dioxide 22 mmol/L (23-31); Chloride 90 mmol/L (98-107); Estimated GFR 53; Globulin 3.2 g/dL (2.4-3.5); Glucose 178 mg/dL (83-110); Lipase 21 U/L (8-78); Potassium 4.1 mmol/L (3.5-5.1); Protein, Total 6.2 g/dL (5.8-8.1); Sodium 123 mmol/L (136-145)
[2022-09-16] MEDS ORDERED: cefTRIAXone\\ROCEPHIN 1 GM VIAL ONE (17:51)
[2022-09-16] MEDS ORDERED: Sodium Chloride 0.9% 1,000 ML IV SCH (19:45)
[2022-09-16 19:54] LABS: Lactic Acid 1.2 mmol/L (0.5-2.2)
[2022-09-16 20:05] LABS: Magnesium 1.1 mg/dL (1.6-2.6)
[2022-09-16] MEDS: Aztreonam 1 GM in Sodium Chloride 0.9% 100 ML IVPB SCH (22:46)
[2022-09-16 23:10] VITALS: BMI 26.5
[2022-09-17 05:14] LABS: #Basophils 0.1 10x3/uL (0.0-0.2); #Eosinphils 0.2 10x3/uL (0.0-0.5); #Monocytes 1.5 10x3/uL (0.0-1.1); #Neutrophils 9.3 10x3/uL (1.5-8.4); %Basophils 0.4 % (0.0-2.0); %Eosinophils 1.6 % (0.0-6.0); %Lymphocytes 14.3 % (18.0-47.0); %Monocytes 11.9 % (0.0-10.0); %Neutrophils 71.4 % (40.0-75.0); Hemoglobin 9.4 g/dL (13.5-17.5); Mean Corpuscular HGB CONC 36.3 g/dL (32.0-36.0); Mean Corpuscular Hemoglobin 31.1 pg (27.0-33.0); Mean Corpuscular Volume 85.8 fl (81.2-95.1); Mean Platelet Volume 9.2 fl (7.4-10.4); Platelet Count 337 10x3/uL (150-450); RBC Distribution Width 12.8 % (11.5-14.5); Red Blood Cell (RBC) Count 3.02 10x6/uL (4.32-5.72)
[2022-09-17] MEDS: Aztreonam 1 GM in Sodium Chloride 0.9% 100 ML IVPB SCH ×3 (05:18→21:49)
[2022-09-17 05:22] LABS: Anion Gap 14 mmol/L (10-20); BUN (Urea Nitrogen) 19 mg/dL (8.4-25.7); Calc. Creatinine Clearance 47 mL/min (70-130); Calcium 8.6 mg/dL (7.8-10.44); Carbon Dioxide 21 mmol/L (23-31); Chloride 97 mmol/L (98-107); Estimated GFR 63; Glucose 119 mg/dL (83-110); Potassium 3.6 mmol/L (3.5-5.1); Sodium 128 mmol/L (136-145)
[2022-09-17] MEDS ORDERED: Magnesium 2 GM/50 ML(in water) 2 GM in Premix Bag 1 BAG IVPB SCH (08:00)
[2022-09-17] MEDS: Sodium Chloride 0.9% 1,000 ML IV SCH (09:44)
[2022-09-18] MEDS: Sodium Chloride 0.9% 1,000 ML IV SCH ×2 (04:43→22:34)
[2022-09-18] MEDS: Aztreonam 1 GM in Sodium Chloride 0.9% 100 ML IVPB SCH (05:34)
[2022-09-18 07:43] LABS: #Basophils 0.1 10x3/uL (0.0-0.2); #Eosinphils 0.4 10x3/uL (0.0-0.5); #Neutrophils 4.7 10x3/uL (1.5-8.4); %Eosinophils 4.7 % (0.0-6.0); %Lymphocytes 22.6 % (18.0-47.0); %Monocytes 12.3 % (0.0-10.0); %Neutrophils 59.2 % (40.0-75.0); Hemoglobin 9.3 g/dL (13.5-17.5); Mean Corpuscular HGB CONC 33.9 g/dL (32.0-36.0); Mean Corpuscular Hemoglobin 31.5 pg (27.0-33.0); Mean Corpuscular Volume 92.9 fl (81.2-95.1); Mean Platelet Volume 9.4 fl (7.4-10.4); Platelet Count 353 10x3/uL (150-450); RBC Distribution Width 13.2 % (11.5-14.5); Red Blood Cell (RBC) Count 2.95 10x6/uL (4.32-5.72)
[2022-09-18 07:47] LABS: Albumin 2.8 g/dL (3.4-4.8); Anion Gap 13 mmol/L (10-20); BUN (Urea Nitrogen) 16 mg/dL (8.4-25.7); BUN/Creatinine Ratio 14.04; Calc. Creatinine Clearance 49 mL/min (70-130); Calcium 8.3 mg/dL (7.8-10.44); Carbon Dioxide 20 mmol/L (23-31); Chloride 102 mmol/L (98-107); Estimated GFR 65; Glucose 104 mg/dL (83-110); Phosphorus 3.4 mg/dL (2.3-4.7); Potassium 3.7 mmol/L (3.5-5.1); Sodium 131 mmol/L (136-145)
[2022-09-18] MEDS ORDERED: Carvedilol 3.125 MG TAB PO SCH (08:00)
[2022-09-18] MEDS: Lisinopril 10 MG TAB PO SCH (08:53)
[2022-09-18] MEDS: Citalopram 20 MG TAB PO SCH (08:54)
[2022-09-18] MEDS ORDERED: Folic Acid 1 MG TAB PO SCH (17:00)
[2022-09-18] MEDS: Carvedilol 12.5 MG TAB PO SCH (17:13)
[2022-09-18 17:34] LABS: Creatinine, Urine 48.59 mg/dL (63-166)
[2022-09-18 17:46] LABS: Microalbumin/Creat Ratio 1337.7 mg/g (Less than 30)
[2022-09-18] MEDS: Acetaminophen 325 MG TAB PO PRN (20:43)
[2022-09-18] MEDS: Ciprofloxacin 500 MG TAB PO SCH (20:43)
[2022-09-18] MEDS ORDERED: HumaLOG 300 UNITS/3 ML VIAL SC PRN (21:00)
[2022-09-18] MEDS ORDERED: Dextrose 50% Abboject 50 ML SYRINGE IVP PRN (21:00)
[2022-09-18] MEDS ORDERED: Dextrose 5% in Water 1,000 ML IV PRN (21:00)
[2022-09-18] MEDS ORDERED: Atorvastatin Calcium 20 MG TAB PO SCH (21:00)
[2022-09-19] MEDS: Mometasone 100 MCG/PUFF (1 INHALER) INH SCH ×2 (01:10→06:35)
[2022-09-19] MEDS: Acetaminophen 325 MG TAB PO PRN (01:52)
[2022-09-19] MEDS: Carvedilol 12.5 MG TAB PO SCH (05:16)
[2022-09-19] MEDS: Ciprofloxacin 500 MG TAB PO SCH (05:16)
[2022-09-19 06:08] LABS: #Basophils 0.1 10x3/uL (0.0-0.2); #Eosinphils 0.4 10x3/uL (0.0-0.5); #Monocytes 0.9 10x3/uL (0.0-1.1); #Neutrophils 5.8 10x3/uL (1.5-8.4); %Basophils 0.6 % (0.0-2.0); %Eosinophils 3.8 % (0.0-6.0); %Lymphocytes 22.6 % (18.0-47.0); %Monocytes 10.2 % (0.0-10.0); %Neutrophils 62.5 % (40.0-75.0); Hemoglobin 9.3 g/dL (13.5-17.5); Mean Corpuscular HGB CONC 34.8 g/dL (32.0-36.0); Mean Corpuscular Hemoglobin 30.9 pg (27.0-33.0); Mean Corpuscular Volume 88.7 fl (81.2-95.1); Mean Platelet Volume 9.2 fl (7.4-10.4); Platelet Count 313 10x3/uL (150-450); RBC Distribution Width 12.9 % (11.5-14.5); Red Blood Cell (RBC) Count 3.01 10x6/uL (4.32-5.72); White Blood Cell (WBC) Count 9.3 10x3/uL (3.5-10.5)
[2022-09-19 06:28] LABS: Albumin 2.8 g/dL (3.4-4.8); Anion Gap 15 mmol/L (10-20); BUN (Urea Nitrogen) 20 mg/dL (8.4-25.7); BUN/Creatinine Ratio 19.05; Calc. Creatinine Clearance 53 mL/min (70-130); Calcium 7.9 mg/dL (7.8-10.44); Carbon Dioxide 18 mmol/L (23-31); Chloride 102 mmol/L (98-107); Estimated GFR 72; Glucose 123 mg/dL (83-110); Iron 70 ug/dL (65-175); Iron Binding Capacity, Total 154 mcg/dL (261-462); Phosphorus 2.7 mg/dL (2.3-4.7); Potassium 4.1 mmol/L (3.5-5.1); Sodium 131 mmol/L (136-145); Transferrin, Serum 123 mg/dL (163-344)
[2022-09-19 06:57] LABS: Iron 69 ug/dL (65-175); Iron Binding Capacity, Total 156 mcg/dL (261-462)
[2022-09-19 08:17] LABS: Ferritin 295.19 ng/mL (22-322)
[2022-09-19] MEDS ORDERED: Folic Acid 1 MG TAB PO SCH (09:00)
[2022-09-19] MEDS: Lisinopril 10 MG TAB PO SCH (09:43)
[2022-09-19] MEDS: Citalopram 20 MG TAB PO SCH (09:43)
[2022-09-19 13:31] VITALS: TEMP 97.6
[2022-09-19 17:13] VITALS: BP 120/65
== END 2022-09-19 16:50 | disposition home health service (06) | DRG 699 ==
LOC: CSHERS 15:47 → CSHTELE 22:31
PROVIDERS: ADMIT Family Medicine; ATTEND Internal Medicine
DX: T83.510A Infection and inflammatory reaction due to cystostomy catheter, initial encounter (principal); E87.1 Hypo-osmolality and hyponatremia; N39.0 Urinary tract infection, site not specified; N17.9 Acute kidney failure, unspecified; H54.7 Unspecified visual loss; R13.10 Dysphagia, unspecified; E78.5 Hyperlipidemia, unspecified; R53.81 Other malaise; I95.9 Hypotension, unspecified; N18.31 Chronic kidney disease, stage 3a; E11.22 Type 2 diabetes mellitus with diabetic chronic kidney disease; R19.7 Diarrhea, unspecified; I12.9 Hypertensive chronic kidney disease with stage 1 through stage 4 chronic kidney disease, or unspecified chronic kidney disease; N13.9 Obstructive and reflux uropathy, unspecified; F32.A Depression, unspecified; Z20.822 Contact with and (suspected) exposure to COVID-19; D63.1 Anemia in chronic kidney disease; E86.0 Dehydration; Z79.4 Long term (current) use of insulin; Z74.01 Bed confinement status; Z79.899 Other long term (current) drug therapy; Z89.421 Acquired absence of other right toe(s); Z79.84 Long term (current) use of oral hypoglycemic drugs; Z98.890 Other specified postprocedural states
CPT/HCPCS: 36415; 36416; 70450; 71045; 80048; 80053; 80069; 81003; 81015; 82043; 82550; 82607; 82728; 83540; 83550; 83605; 83690; 83735; 84156; 84443; 84466; 84484; 85025; 85610; 85730; 87040; 87077; 87086; 87186; 93005; 94664; 94760; 96365; J0696; J1650; J1815; J3475; J3490; J7050

== ENCOUNTER 2022-09-29 02:06 | Inpatient (IN) | payer MEDICARE, MEDICAID ==
[2022-09-29] MEDS ORDERED: Piperacillin/Tazobactam 3.375 GM VIAL ONE (02:21)
[2022-09-29] MEDS ORDERED: Vancomycin 1 GM VIAL ONE (02:21)
[2022-09-29 03:08] LABS: Bilirubin Neg (Negative); Blood, Urine 150 (Negative); Clarity Cloudy (Clear); Glucose, Urine (Dipstick) Normal (Negative); Ketone, Urine Negative (Negative); Leukocyte 500 (Negative); Nitrite Negative (Negative); Protein, Urine (Dipstick) 100 mg/dl (Neg-Trace); Urobilinogen Normal mg/dL (Less than 2)
[2022-09-29 03:22] LABS: Bacteria/HPF 1+ HPF (None Seen); Mucous/LPF 1+ LPF (<2+); Squamous Epithelial 0-3 HPF (0-3); WBC/HPF Greater Than 50 HPF (0-3); Yeast-Budding 2+ HPF (None Seen)
[2022-09-29 03:23] LABS: #Basophils 0.1 10x3/uL (0.0-0.2); #Eosinphils 0.2 10x3/uL (0.0-0.5); #Monocytes 1.1 10x3/uL (0.0-1.1); #Neutrophils 16.5 10x3/uL (1.5-8.4); %Basophils 0.4 % (0.0-2.0); %Eosinophils 1.1 % (0.0-6.0); %Lymphocytes 7.2 % (18.0-47.0); %Monocytes 5.8 % (0.0-10.0); %Neutrophils 84.7 % (40.0-75.0); Hemoglobin 8.7 g/dL (13.5-17.5); Mean Corpuscular HGB CONC 33.7 g/dL (32.0-36.0); Mean Corpuscular Volume 91.8 fl (81.2-95.1); Mean Platelet Volume 9.1 fl (7.4-10.4); Platelet Count 382 10x3/uL (150-450); Red Blood Cell (RBC) Count 2.81 10x6/uL (4.32-5.72); White Blood Cell (WBC) Count 19.4 10x3/uL (3.5-10.5)
[2022-09-29 03:36] LABS: ALT (SGPT) 13 U/L (8-55); AST (SGOT) 21 U/L (5-34); Albumin 3.1 g/dL (3.4-4.8); Alkaline Phosphatase 111 U/L (40-110); Anion Gap 16 mmol/L (10-20); BUN (Urea Nitrogen) 37 mg/dL (8.4-25.7); Bilirubin, Total 0.4 mg/dL (0.2-1.2); Calc. Creatinine Clearance 0 mL/min (70-130); Calcium 8.4 mg/dL (7.8-10.44); Carbon Dioxide 12 mmol/L (23-31); Chloride 102 mmol/L (98-107); Estimated GFR 34; Globulin 3.1 g/dL (2.4-3.5); Glucose 247 mg/dL (83-110); Potassium 4.4 mmol/L (3.5-5.1); Protein, Total 6.2 g/dL (5.8-8.1); Sodium 126 mmol/L (136-145)
[2022-09-29 03:40] LABS: SARS-CoV-2 NAA Rapid Test Not Detected (NotDetected)
[2022-09-29] MEDS ORDERED: NOREPINEPHRINE 8 MG/250 ML-D5W 250 ML ONE (04:05)
[2022-09-29] MEDS ORDERED: NOREPINEPHRINE 8 MG/250 ML-D5W 250 ML IVPB SCH (04:45)
[2022-09-29] MEDS ORDERED: Dextrose 50% Abboject 50 ML SYRINGE SLOW IVP PRN (04:52)
[2022-09-29] MEDS ORDERED: Dextrose 5% in Water 1,000 ML IV PRN (04:52)
[2022-09-29] MEDS ORDERED: Acetaminophen 650 MG Suppository PR PRN (04:54)
[2022-09-29] MEDS ORDERED: Dexmedetomidine In 0.9 % NaCl 100 ML IVPB SCH (05:45)
[2022-09-29] MEDS ORDERED: Pantoprazole 40 MG VIAL IVP SCH ×3 (06:00→21:00)
[2022-09-29 07:36] LABS: Magnesium 1.5 mg/dL (1.6-2.6)
[2022-09-29] MEDS: Lactated Ringer's 1,000 ML IV SCH ×3 (07:38→23:23)
[2022-09-29 07:44] LABS: Hemoglobin 9.7 g/dL (13.5-17.5)
[2022-09-29 08:11] LABS: PTT 25.1 sec (22.0-33.0); Prothrombin Time 10.6 sec (9.5-12.1)
[2022-09-29] MEDS: Vancomycin HCl 125 MG/5 ML (BATCHED) UDCUP PO SCH ×4 (08:25→23:20)
[2022-09-29] MEDS: Cefepime 2 GM in Sodium Chloride 0.9% 100 ML IVPB SCH (08:25)
[2022-09-29] MEDS: Acetaminophen 325 MG TAB PO PRN (08:25)
[2022-09-29] MEDS ORDERED: FLU VACC QS2022-23(65YR UP)/PF 240 MCG/0.7 ML SYRINGE IM ONE (09:00)
[2022-09-29] MEDS ORDERED: Magnesium 2 GM/50 ML(in water) 2 GM in Premix Bag 1 BAG IVPB SCH (12:15)
[2022-09-29 15:50] LABS: Campy jejuni + coli by PCR Negative (Negative); STEC Shiga Toxin 1+2 Negative (Negative); Salmonella spp. by PCR Negative (Negative); Shigella spp + EIEC by PCR Negative (Negative)
[2022-09-29 17:43] LABS: Anion Gap 13 mmol/L (10-20); BUN (Urea Nitrogen) 43 mg/dL (8.4-25.7); Calc. Creatinine Clearance 29 mL/min (70-130); Calcium 7.8 mg/dL (7.8-10.44); Carbon Dioxide 12 mmol/L (23-31); Chloride 107 mmol/L (98-107); Estimated GFR 39; Glucose 231 mg/dL (83-110); Sodium 128 mmol/L (136-145)
[2022-09-30 02:44] LABS: #Basophils 0.1 10x3/uL (0.0-0.2); #Eosinphils 0.2 10x3/uL (0.0-0.5); #Monocytes 1.3 10x3/uL (0.0-1.1); #Neutrophils 12.4 10x3/uL (1.5-8.4); %Basophils 0.3 % (0.0-2.0); %Eosinophils 1.4 % (0.0-6.0); %Lymphocytes 9.4 % (18.0-47.0); %Monocytes 8.6 % (0.0-10.0); %Neutrophils 79.7 % (40.0-75.0); Mean Corpuscular Hemoglobin 31.3 pg (27.0-33.0); Mean Platelet Volume 8.6 fl (7.4-10.4); Platelet Count 289 10x3/uL (150-450); RBC Distribution Width 13.4 % (11.5-14.5); Red Blood Cell (RBC) Count 2.24 10x6/uL (4.32-5.72); White Blood Cell (WBC) Count 15.6 10x3/uL (3.5-10.5)
[2022-09-30 02:57] LABS: Anion Gap 12 mmol/L (10-20); BUN (Urea Nitrogen) 39 mg/dL (8.4-25.7); Calc. Creatinine Clearance 29 mL/min (70-130); Calcium 7.8 mg/dL (7.8-10.44); Carbon Dioxide 13 mmol/L (23-31); Chloride 108 mmol/L (98-107); Estimated GFR 39; Glucose 133 mg/dL (83-110); Potassium 3.7 mmol/L (3.5-5.1); Sodium 129 mmol/L (136-145)
[2022-09-30 02:57] LABS: Vancomycin, Random 7.8 ug/mL (See Comment)
[2022-09-30] MEDS: Vancomycin HCl 750 MG in Sodium Chloride 0.9% 250 ML 300 ML IVPB SCH (03:51)
[2022-09-30] MEDS: Acetaminophen 325 MG TAB PO PRN ×2 (03:52→08:07)
[2022-09-30] MEDS ORDERED: Morphine 2 MG/ML VIAL SLOW IVP SCH ×2 (04:45→08:45)
[2022-09-30] MEDS: Lactated Ringer's 1,000 ML IV SCH ×3 (05:36→20:10)
[2022-09-30] MEDS: Vancomycin HCl 125 MG/5 ML (BATCHED) UDCUP PO SCH ×3 (05:43→17:33)
[2022-09-30 06:53] LABS: Hemoglobin 7.3 g/dL (13.5-17.5)
[2022-09-30] MEDS: Famotidine/PF 20 mg/2ml Vial SLOW IVP SCH (08:05)
[2022-09-30] MEDS: Cefepime 2 GM in Sodium Chloride 0.9% 100 ML IVPB SCH (08:15)
[2022-09-30] MEDS: Lidocaine 5% Patch TD SCH (08:38)
[2022-09-30] MEDS: HYDROcodone/Acetaminophen 10/325 mg Tablet PO PRN ×2 (13:15→17:05)
[2022-09-30] MEDS: Transdermal Patch Removal LIDOCAINE TOP SCH (20:10)
[2022-10-01] MEDS: Vancomycin HCl 125 MG/5 ML (BATCHED) UDCUP PO SCH ×5 (00:20→23:27)
[2022-10-01] MEDS: HYDROcodone/Acetaminophen 10/325 mg Tablet PO PRN ×2 (00:57→08:38)
[2022-10-01 02:06] LABS: #Eosinphils 0.5 10x3/uL (0.0-0.5); #Monocytes 1.4 10x3/uL (0.0-1.1); #Neutrophils 7.4 10x3/uL (1.5-8.4); %Basophils 0.4 % (0.0-2.0); %Eosinophils 4.6 % (0.0-6.0); %Lymphocytes 11.2 % (18.0-47.0); %Monocytes 13.1 % (0.0-10.0); %Neutrophils 70.4 % (40.0-75.0); Mean Corpuscular HGB CONC 34.1 g/dL (32.0-36.0); Mean Corpuscular Hemoglobin 31.5 pg (27.0-33.0); Mean Corpuscular Volume 92.3 fl (81.2-95.1); Mean Platelet Volume 9.1 fl (7.4-10.4); Platelet Count 285 10x3/uL (150-450); RBC Distribution Width 13.6 % (11.5-14.5); Red Blood Cell (RBC) Count 2.22 10x6/uL (4.32-5.72); White Blood Cell (WBC) Count 10.5 10x3/uL (3.5-10.5)
[2022-10-01 02:19] LABS: Vancomycin, Trough 11.9 ug/mL
[2022-10-01 02:21] LABS: Anion Gap 12 mmol/L (10-20); BUN (Urea Nitrogen) 26 mg/dL (8.4-25.7); Calc. Creatinine Clearance 39 mL/min (70-130); Calcium 7.7 mg/dL (7.8-10.44); Carbon Dioxide 14 mmol/L (23-31); Chloride 110 mmol/L (98-107); Estimated GFR 55; Glucose 109 mg/dL (83-110); Magnesium 1.7 mg/dL (1.6-2.6); Potassium 3.6 mmol/L (3.5-5.1); Sodium 132 mmol/L (136-145)
[2022-10-01] MEDS: Vancomycin HCl 1 GM in Sodium Chloride 0.9% 250 ML 250 ML IVPB SCH (03:53)
[2022-10-01] MEDS: Lactated Ringer's 1,000 ML IV SCH ×3 (03:53→20:48)
[2022-10-01] MEDS: Vancomycin HCl 750 MG in Sodium Chloride 0.9% 250 ML 300 ML IVPB SCH (04:21)
[2022-10-01] MEDS ORDERED: Cefepime 2 GM in Sodium Chloride 0.9% 100 ML IVPB SCH (08:30)
[2022-10-01] MEDS: Famotidine/PF 20 mg/2ml Vial SLOW IVP SCH (08:39)
[2022-10-01] MEDS: Lidocaine 5% Patch TD SCH (08:39)
[2022-10-01] MEDS: Cefepime 2 GM in Sodium Chloride 0.9% 100 ML IVPB SCH ×2 (08:40→20:48)
[2022-10-01] MEDS: Transdermal Patch Removal LIDOCAINE TOP SCH (21:08)
[2022-10-02] MEDS: Vancomycin HCl 1 GM in Sodium Chloride 0.9% 250 ML 250 ML IVPB SCH (04:12)
[2022-10-02] MEDS: Vancomycin HCl 125 MG/5 ML (BATCHED) UDCUP PO SCH ×4 (05:42→23:06)
[2022-10-02] MEDS: Lactated Ringer's 1,000 ML IV SCH (05:42)
[2022-10-02] MEDS ORDERED: Labetalol HCl 100 MG/20 ML VIAL SLOW IVP SCH (05:45)
[2022-10-02] MEDS: Famotidine/PF 20 mg/2ml Vial SLOW IVP SCH (07:37)
[2022-10-02] MEDS: Lidocaine 5% Patch TD SCH (07:37)
[2022-10-02] MEDS: Cefepime 2 GM in Sodium Chloride 0.9% 100 ML IVPB SCH (07:38)
[2022-10-02] MEDS: HYDROcodone/Acetaminophen 10/325 mg Tablet PO PRN ×2 (07:40→12:54)
[2022-10-02 10:00] LABS: #Basophils 0.1 10x3/uL (0.0-0.2); #Eosinphils 0.2 10x3/uL (0.0-0.5); #Monocytes 1.2 10x3/uL (0.0-1.1); #Neutrophils 8.9 10x3/uL (1.5-8.4); %Basophils 0.4 % (0.0-2.0); %Lymphocytes 9.3 % (18.0-47.0); %Neutrophils 77.7 % (40.0-75.0); Mean Corpuscular HGB CONC 35.2 g/dL (32.0-36.0); Mean Corpuscular Hemoglobin 31.1 pg (27.0-33.0); Mean Corpuscular Volume 88.6 fl (81.2-95.1); Mean Platelet Volume 9.3 fl (7.4-10.4); Platelet Count 314 10x3/uL (150-450); RBC Distribution Width 13.6 % (11.5-14.5); Red Blood Cell (RBC) Count 2.89 10x6/uL (4.32-5.72); White Blood Cell (WBC) Count 11.5 10x3/uL (3.5-10.5)
[2022-10-02 10:11] LABS: Anion Gap 13 mmol/L (10-20); BUN (Urea Nitrogen) 18 mg/dL (8.4-25.7); Calc. Creatinine Clearance 47 mL/min (70-130); Calcium 8.1 mg/dL (7.8-10.44); Carbon Dioxide 16 mmol/L (23-31); Chloride 108 mmol/L (98-107); Estimated GFR 65; Glucose 181 mg/dL (83-110); Potassium 3.2 mmol/L (3.5-5.1); Sodium 134 mmol/L (136-145)
[2022-10-02] MEDS ORDERED: Fluconazole 100 MG TAB PO SCH (10:15)
[2022-10-02] MEDS ORDERED: Sodium Bicarbonate Tab 325 MG TAB PO SCH (10:15)
[2022-10-02] MEDS ORDERED: Polyethylene Glycol 3350 17 GM Packet PO PRN (10:16)
[2022-10-02] MEDS: HumaLOG 300 UNITS/3 ML VIAL SC PRN (11:44)
[2022-10-02 12:23] LABS: CRP (Inflammatory) 14.13 mg/dL (= or < 0.5)
[2022-10-02 12:29] LABS: ALT (SGPT) 7 U/L (8-55); AST (SGOT) 13 U/L (5-34); Albumin 2.6 g/dL (3.4-4.8); Alkaline Phosphatase 54 U/L (40-110); Bilirubin, Direct 0.3 mg/dL (0.1-0.3); Bilirubin, Total 0.6 mg/dL (0.2-1.2); Iron 38 ug/dL (65-175); Iron Binding Capacity, Total 136 mcg/dL (261-462); Protein, Total 5.5 g/dL (5.8-8.1)
[2022-10-02 13:22] LABS: Ferritin 273.32 ng/mL (22-322); Thyroid Stimulating Hormone 1.4814 uIU/mL (0.35-4.94)
[2022-10-02] MEDS: Sodium Bicarbonate Tab 325 MG TAB PO SCH ×2 (17:01→20:19)
[2022-10-02] MEDS: Carvedilol 3.125 MG TAB PO SCH (20:19)
[2022-10-02] MEDS: Atorvastatin Calcium 20 MG TAB PO SCH (20:19)
[2022-10-02] MEDS: cefTRIAXone\\ROCEPHIN 2 GM in Sodium Chloride 0.9% 100 ML IVPB SCH (20:26)
[2022-10-02] MEDS: Transdermal Patch Removal LIDOCAINE TOP SCH (20:27)
[2022-10-03] MEDS: HYDROcodone/Acetaminophen 10/325 mg Tablet PO PRN (00:13)
[2022-10-03 03:36] LABS: #Eosinphils 0.5 10x3/uL (0.0-0.5); #Monocytes 1.3 10x3/uL (0.0-1.1); #Neutrophils 6.3 10x3/uL (1.5-8.4); %Basophils 0.3 % (0.0-2.0); %Eosinophils 5.5 % (0.0-6.0); %Lymphocytes 13.5 % (18.0-47.0); %Neutrophils 66.2 % (40.0-75.0); Hemoglobin 8.2 g/dL (13.5-17.5); Mean Corpuscular HGB CONC 34.5 g/dL (32.0-36.0); Mean Corpuscular Hemoglobin 30.3 pg (27.0-33.0); Mean Corpuscular Volume 87.8 fl (81.2-95.1); Mean Platelet Volume 9.6 fl (7.4-10.4); Platelet Count 291 10x3/uL (150-450); RBC Distribution Width 13.2 % (11.5-14.5); Red Blood Cell (RBC) Count 2.71 10x6/uL (4.32-5.72); White Blood Cell (WBC) Count 9.5 10x3/uL (3.5-10.5)
[2022-10-03 03:42] LABS: Anion Gap 11 mmol/L (10-20); BUN (Urea Nitrogen) 14 mg/dL (8.4-25.7); Calc. Creatinine Clearance 51 mL/min (70-130); Calcium 7.9 mg/dL (7.8-10.44); Carbon Dioxide 20 mmol/L (23-31); Chloride 106 mmol/L (98-107); Estimated GFR 72; Glucose 144 mg/dL (83-110); Sodium 134 mmol/L (136-145)
[2022-10-03 04:05] LABS: Potassium 2.6 mmol/L (3.5-5.1)
[2022-10-03] MEDS: Potassium Chloride 20 MEQ in Premix Bag 1 BAG IVPB SCH ×3 (04:54→08:29)
[2022-10-03] MEDS: Vancomycin HCl 125 MG/5 ML (BATCHED) UDCUP PO SCH ×4 (06:22→23:44)
[2022-10-03] MEDS ORDERED: Electrolyte Replacement Protocol 1 EACH FS SCH (08:00)
[2022-10-03] MEDS: Carvedilol 3.125 MG TAB PO SCH ×2 (08:28→20:43)
[2022-10-03] MEDS: Sodium Bicarbonate Tab 325 MG TAB PO SCH ×3 (08:28→20:48)
[2022-10-03] MEDS: Fluconazole 100 MG TAB PO SCH (08:29)
[2022-10-03] MEDS: Famotidine/PF 20 mg/2ml Vial SLOW IVP SCH (08:29)
[2022-10-03] MEDS: Polyethylene Glycol 3350 17 GM Packet PO SCH ×2 (08:30→12:09)
[2022-10-03] MEDS: Lidocaine 5% Patch TD SCH (08:30)
[2022-10-03] MEDS ORDERED: Carvedilol 3.125 MG TAB PO SCH (09:30)
[2022-10-03 09:49] LABS: Magnesium 1.5 mg/dL (1.6-2.6)
[2022-10-03] MEDS ORDERED: Magnesium 2 GM/50 ML(in water) 2 GM in Premix Bag 1 BAG IVPB SCH (10:15)
[2022-10-03] MEDS: Potassium Bicarbonate/Cit Ac 20 MEQ TAB PO SCH ×2 (11:08→12:48)
[2022-10-03] MEDS: hydrALAZINE 20 MG/ML VIAL SLOW IVP PRN (12:41)
[2022-10-03] MEDS: Carvedilol 6.25 MG TAB PO SCH (16:36)
[2022-10-03] MEDS ORDERED: Melatonin 3 MG TAB PO SCH (20:30)
[2022-10-03] MEDS: HumaLOG 300 UNITS/3 ML VIAL SC PRN (20:38)
[2022-10-03] MEDS ORDERED: Sodium Chloride 0.9% 100 ML ONE (20:41)
[2022-10-03] MEDS: Transdermal Patch Removal LIDOCAINE TOP SCH (20:41)
[2022-10-03] MEDS: cefTRIAXone\\ROCEPHIN 2 GM in Sodium Chloride 0.9% 100 ML IVPB SCH (20:42)
[2022-10-03] MEDS: Atorvastatin Calcium 20 MG TAB PO SCH (20:43)
[2022-10-04 03:49] LABS: #Eosinphils 0.6 10x3/uL (0.0-0.5); #Monocytes 1.5 10x3/uL (0.0-1.1); #Neutrophils 6.8 10x3/uL (1.5-8.4); %Basophils 0.4 % (0.0-2.0); %Eosinophils 5.9 % (0.0-6.0); %Lymphocytes 15.5 % (18.0-47.0); %Monocytes 13.9 % (0.0-10.0); %Neutrophils 63.9 % (40.0-75.0); Hemoglobin 8.4 g/dL (13.5-17.5); Mean Corpuscular HGB CONC 35.1 g/dL (32.0-36.0); Mean Corpuscular Hemoglobin 30.9 pg (27.0-33.0); Mean Corpuscular Volume 87.9 fl (81.2-95.1); Mean Platelet Volume 9.2 fl (7.4-10.4); Platelet Count 328 10x3/uL (150-450); RBC Distribution Width 13.4 % (11.5-14.5); Red Blood Cell (RBC) Count 2.72 10x6/uL (4.32-5.72); White Blood Cell (WBC) Count 10.6 10x3/uL (3.5-10.5)
[2022-10-04 04:17] LABS: Anion Gap 11 mmol/L (10-20); BUN (Urea Nitrogen) 12 mg/dL (8.4-25.7); Calc. Creatinine Clearance 53 mL/min (70-130); Calcium 7.9 mg/dL (7.8-10.44); Carbon Dioxide 22 mmol/L (23-31); Chloride 103 mmol/L (98-107); Estimated GFR 77; Glucose 114 mg/dL (83-110); Magnesium 1.9 mg/dL (1.6-2.6); Potassium 4.1 mmol/L (3.5-5.1); Sodium 132 mmol/L (136-145)
[2022-10-04] MEDS ORDERED: Magnesium 2 GM/50 ML BAG (IN WATER) ONE (05:02)
[2022-10-04] MEDS: Vancomycin HCl 125 MG/5 ML (BATCHED) UDCUP PO SCH ×4 (05:03→23:38)
[2022-10-04] MEDS ORDERED: Magnesium 2 GM/50 ML(in water) 2 GM in Premix Bag 1 BAG IVPB SCH (06:00)
[2022-10-04] MEDS: Famotidine/PF 20 mg/2ml Vial SLOW IVP SCH (08:32)
[2022-10-04] MEDS: Lidocaine 5% Patch TD SCH (08:32)
[2022-10-04] MEDS: Sodium Bicarbonate Tab 325 MG TAB PO SCH ×3 (08:33→20:35)
[2022-10-04] MEDS: Fluconazole 100 MG TAB PO SCH (08:33)
[2022-10-04] MEDS: Carvedilol 6.25 MG TAB PO SCH ×2 (08:33→17:10)
[2022-10-04] MEDS: Carvedilol 3.125 MG TAB PO SCH (08:35)
[2022-10-04] MEDS: Polyethylene Glycol 3350 17 GM Packet PO SCH (11:38)
[2022-10-04] MEDS: cefTRIAXone\\ROCEPHIN 2 GM in Sodium Chloride 0.9% 100 ML IVPB SCH (20:34)
[2022-10-04] MEDS: Atorvastatin Calcium 20 MG TAB PO SCH (20:35)
[2022-10-04] MEDS: Transdermal Patch Removal LIDOCAINE TOP SCH (20:36)
[2022-10-05 04:30] LABS: Anion Gap 11 mmol/L (10-20); BUN (Urea Nitrogen) 9 mg/dL (8.4-25.7); Calc. Creatinine Clearance 53 mL/min (70-130); Calcium 7.7 mg/dL (7.8-10.44); Carbon Dioxide 23 mmol/L (23-31); Chloride 101 mmol/L (98-107); Estimated GFR 78; Glucose 113 mg/dL (83-110); Potassium 3.6 mmol/L (3.5-5.1); Sodium 131 mmol/L (136-145)
[2022-10-05 04:39] LABS: #Eosinphils 0.7 10x3/uL (0.0-0.5); #Monocytes 1.1 10x3/uL (0.0-1.1); %Basophils 0.5 % (0.0-2.0); %Eosinophils 7.4 % (0.0-6.0); %Lymphocytes 22.7 % (18.0-47.0); %Monocytes 11.9 % (0.0-10.0); %Neutrophils 56.8 % (40.0-75.0); Hemoglobin 8.4 g/dL (13.5-17.5); Mean Corpuscular HGB CONC 35.6 g/dL (32.0-36.0); Mean Corpuscular Hemoglobin 31.3 pg (27.0-33.0); Mean Corpuscular Volume 88.1 fl (81.2-95.1); Mean Platelet Volume 9.5 fl (7.4-10.4); Platelet Count 323 10x3/uL (150-450); Red Blood Cell (RBC) Count 2.68 10x6/uL (4.32-5.72); White Blood Cell (WBC) Count 8.8 10x3/uL (3.5-10.5)
[2022-10-05] MEDS: Vancomycin HCl 125 MG/5 ML (BATCHED) UDCUP PO SCH ×3 (05:31→18:19)
[2022-10-05] MEDS ORDERED: Magnesium 2 GM/50 ML(in water) 2 GM in Premix Bag 1 BAG IVPB SCH (06:00)
[2022-10-05] MEDS: Polyethylene Glycol 3350 17 GM Packet PO SCH (08:54)
[2022-10-05] MEDS: Sodium Bicarbonate Tab 325 MG TAB PO SCH ×3 (08:54→20:04)
[2022-10-05] MEDS: Fluconazole 100 MG TAB PO SCH (08:54)
[2022-10-05] MEDS: Carvedilol 6.25 MG TAB PO SCH (08:55)
[2022-10-05] MEDS: Lidocaine 5% Patch TD SCH (08:55)
[2022-10-05] MEDS: Famotidine/PF 20 mg/2ml Vial SLOW IVP SCH (08:55)
[2022-10-05] MEDS: Lisinopril 10 MG TAB PO SCH (08:57)
[2022-10-05] MEDS ORDERED: Carvedilol 12.5 MG TAB PO SCH (09:00)
[2022-10-05] MEDS: Carvedilol 12.5 MG TAB PO SCH (16:54)
[2022-10-05] MEDS: Atorvastatin Calcium 20 MG TAB PO SCH (20:04)
[2022-10-05] MEDS: cefTRIAXone\\ROCEPHIN 2 GM in Sodium Chloride 0.9% 100 ML IVPB SCH (20:04)
[2022-10-05] MEDS: Transdermal Patch Removal LIDOCAINE TOP SCH (20:14)
[2022-10-06] MEDS: Vancomycin HCl 125 MG/5 ML (BATCHED) UDCUP PO SCH ×5 (00:03→23:11)
[2022-10-06 06:28] LABS: #Eosinphils 0.5 10x3/uL (0.0-0.5); #Monocytes 0.9 10x3/uL (0.0-1.1); #Neutrophils 5.1 10x3/uL (1.5-8.4); %Basophils 0.3 % (0.0-2.0); %Eosinophils 5.8 % (0.0-6.0); %Lymphocytes 23.4 % (18.0-47.0); %Monocytes 10.7 % (0.0-10.0); %Neutrophils 59.2 % (40.0-75.0); Hemoglobin 8.8 g/dL (13.5-17.5); Mean Corpuscular HGB CONC 34.2 g/dL (32.0-36.0); Mean Corpuscular Hemoglobin 30.4 pg (27.0-33.0); Mean Corpuscular Volume 88.9 fl (81.2-95.1); Mean Platelet Volume 8.9 fl (7.4-10.4); Platelet Count 347 10x3/uL (150-450); RBC Distribution Width 13.2 % (11.5-14.5); Red Blood Cell (RBC) Count 2.89 10x6/uL (4.32-5.72); White Blood Cell (WBC) Count 8.6 10x3/uL (3.5-10.5)
[2022-10-06 06:39] LABS: Anion Gap 10 mmol/L (10-20); BUN (Urea Nitrogen) 12 mg/dL (8.4-25.7); Calc. Creatinine Clearance 39 mL/min (70-130); Carbon Dioxide 25 mmol/L (23-31); Chloride 100 mmol/L (98-107); Estimated GFR 54; Glucose 173 mg/dL (83-110); Magnesium 2.2 mg/dL (1.6-2.6); Potassium 3.7 mmol/L (3.5-5.1); Sodium 131 mmol/L (136-145)
[2022-10-06] MEDS: Fluconazole 100 MG TAB PO SCH (08:03)
[2022-10-06] MEDS: Lisinopril 10 MG TAB PO SCH (08:03)
[2022-10-06] MEDS: Sodium Bicarbonate Tab 325 MG TAB PO SCH ×3 (08:05→20:18)
[2022-10-06] MEDS: Lidocaine 5% Patch TD SCH (08:05)
[2022-10-06] MEDS: Carvedilol 12.5 MG TAB PO SCH ×2 (08:05→17:01)
[2022-10-06] MEDS: Famotidine/PF 20 mg/2ml Vial SLOW IVP SCH (08:06)
[2022-10-06] MEDS: Polyethylene Glycol 3350 17 GM Packet PO SCH (08:06)
[2022-10-06] MEDS ORDERED: Lactated Ringer's 1,000 ML IV SCH (09:45)
[2022-10-06] MEDS: hydrALAZINE 20 MG/ML VIAL SLOW IVP PRN (20:18)
[2022-10-06] MEDS: Atorvastatin Calcium 20 MG TAB PO SCH (20:18)
[2022-10-06] MEDS: Transdermal Patch Removal LIDOCAINE TOP SCH (20:20)
[2022-10-07 04:03] LABS: #Eosinphils 0.6 10x3/uL (0.0-0.5); #Monocytes 0.9 10x3/uL (0.0-1.1); #Neutrophils 5.1 10x3/uL (1.5-8.4); %Basophils 0.4 % (0.0-2.0); %Eosinophils 6.3 % (0.0-6.0); %Lymphocytes 25.1 % (18.0-47.0); %Monocytes 10.5 % (0.0-10.0); %Neutrophils 57.1 % (40.0-75.0); Hemoglobin 8.8 g/dL (13.5-17.5); Mean Corpuscular Hemoglobin 30.6 pg (27.0-33.0); Mean Corpuscular Volume 89.9 fl (81.2-95.1); Mean Platelet Volume 8.5 fl (7.4-10.4); Platelet Count 319 10x3/uL (150-450); RBC Distribution Width 13.1 % (11.5-14.5); Red Blood Cell (RBC) Count 2.88 10x6/uL (4.32-5.72); White Blood Cell (WBC) Count 8.9 10x3/uL (3.5-10.5)
[2022-10-07 04:18] LABS: Anion Gap 10 mmol/L (10-20); BUN (Urea Nitrogen) 10 mg/dL (8.4-25.7); Calc. Creatinine Clearance 48 mL/min (70-130); Carbon Dioxide 25 mmol/L (23-31); Chloride 102 mmol/L (98-107); Estimated GFR 69; Glucose 139 mg/dL (83-110); Magnesium 1.9 mg/dL (1.6-2.6); Potassium 3.4 mmol/L (3.5-5.1); Sodium 134 mmol/L (136-145)
[2022-10-07 04:18] LABS: Phosphorus 3.1 mg/dL (2.3-4.7)
[2022-10-07] MEDS: Vancomycin HCl 125 MG/5 ML (BATCHED) UDCUP PO SCH ×4 (05:45→23:54)
[2022-10-07] MEDS ORDERED: Potassium Chloride 20 MEQ TAB PO SCH (06:00)
[2022-10-07] MEDS ORDERED: Magnesium 2 GM/50 ML(in water) 2 GM in Premix Bag 1 BAG IVPB SCH (06:00)
[2022-10-07] MEDS ORDERED: Potassium Bicarbonate/Cit Ac 20 MEQ TAB PO SCH (06:00)
[2022-10-07] MEDS: Fluconazole 100 MG TAB PO SCH (08:15)
[2022-10-07] MEDS: Carvedilol 12.5 MG TAB PO SCH ×2 (08:15→16:29)
[2022-10-07] MEDS: hydrALAZINE 20 MG/ML VIAL SLOW IVP PRN (08:15)
[2022-10-07] MEDS: Lidocaine 5% Patch TD SCH (08:15)
[2022-10-07] MEDS: Famotidine/PF 20 mg/2ml Vial SLOW IVP SCH (08:15)
[2022-10-07] MEDS: Polyethylene Glycol 3350 17 GM Packet PO SCH (08:16)
[2022-10-07] MEDS: Sodium Bicarbonate Tab 325 MG TAB PO SCH ×3 (08:16→21:07)
[2022-10-07] MEDS: Lisinopril 10 MG TAB PO SCH (08:16)
[2022-10-07] MEDS: HumaLOG 300 UNITS/3 ML VIAL SC PRN ×3 (12:15→21:09)
[2022-10-07] MEDS: Atorvastatin Calcium 20 MG TAB PO SCH (21:07)
[2022-10-07] MEDS: Transdermal Patch Removal LIDOCAINE TOP SCH (21:08)
[2022-10-08] MEDS: Carvedilol 12.5 MG TAB PO SCH ×2 (04:06→17:37)
[2022-10-08] MEDS: Vancomycin HCl 125 MG/5 ML (BATCHED) UDCUP PO SCH ×3 (05:50→17:37)
[2022-10-08 06:07] VITALS: BMI 21.2
[2022-10-08] MEDS ORDERED: Potassium Bicarbonate/Cit Ac 20 MEQ TAB PO SCH (08:00)
[2022-10-08] MEDS: Lidocaine 5% Patch TD SCH (08:32)
[2022-10-08] MEDS: Sodium Bicarbonate Tab 325 MG TAB PO SCH (08:32)
[2022-10-08] MEDS: Lisinopril 10 MG TAB PO SCH (08:32)
[2022-10-08] MEDS: Fluconazole 100 MG TAB PO SCH (08:32)
[2022-10-08] MEDS ORDERED: Lisinopril 10 MG TAB PO SCH (09:00)
[2022-10-08] MEDS: Famotidine/PF 20 mg/2ml Vial SLOW IVP SCH (09:50)
[2022-10-08] MEDS: Polyethylene Glycol 3350 17 GM Packet PO SCH (09:50)
[2022-10-08 14:29] LABS: Potassium 4.6 mmol/L (3.5-5.1)
[2022-10-08] MEDS ORDERED: Magnesium 2 GM/50 ML(in water) 2 GM in Premix Bag 1 BAG IVPB SCH (14:45)
[2022-10-08] MEDS: Transdermal Patch Removal LIDOCAINE TOP SCH (20:12)
[2022-10-08] MEDS: Atorvastatin Calcium 20 MG TAB PO SCH (20:12)
[2022-10-09] MEDS: Vancomycin HCl 125 MG/5 ML (BATCHED) UDCUP PO SCH ×2 (01:17→06:28)
[2022-10-09 04:58] LABS: Magnesium 1.8 mg/dL (1.6-2.6)
[2022-10-09] MEDS ORDERED: Magnesium 2 GM/50 ML(in water) 2 GM in Premix Bag 1 BAG IVPB SCH (06:00)
[2022-10-09] MEDS ORDERED: Lisinopril 20 MG TAB PO SCH (09:00)
[2022-10-09] MEDS ORDERED: Famotidine 20 MG TAB PO SCH (09:00)
[2022-10-09] MEDS ORDERED: Magnesium Oxide 400 MG TAB PO SCH (09:00)
[2022-10-09] MEDS: Fluconazole 100 MG TAB PO SCH (10:50)
[2022-10-09] MEDS: Carvedilol 12.5 MG TAB PO SCH (10:53)
[2022-10-09] MEDS: Lidocaine 5% Patch TD SCH (10:54)
[2022-10-09] MEDS: Polyethylene Glycol 3350 17 GM Packet PO SCH (10:55)
[2022-10-09 16:35] VITALS: BP 170/73; TEMP 98.8
== END 2022-10-09 17:00 | DRG 871 ==
LOC: CSHERS 02:06 → CSHIMCU 05:43 → CSHTELE 10-08 18:29
PROVIDERS: ADMIT Family Medicine; ATTEND Internal Medicine
PROC: 3E03329 Introduction of Other Anti-infective into Peripheral Vein, Percutaneous Approach (ICD-10-PCS; principal; 2022-09-29)
PROC: 30233N1 Transfusion of Nonautologous Red Blood Cells into Peripheral Vein, Percutaneous Approach (ICD-10-PCS; 2022-09-29)
DX: A41.9 Sepsis, unspecified organism (principal); G93.41 Metabolic encephalopathy; R65.21 Severe sepsis with septic shock; E87.1 Hypo-osmolality and hyponatremia; N17.9 Acute kidney failure, unspecified; N18.4 Chronic kidney disease, stage 4 (severe); E87.20 Acidosis, unspecified; B37.49 Other urogenital candidiasis; Z20.822 Contact with and (suspected) exposure to COVID-19; E11.39 Type 2 diabetes mellitus with other diabetic ophthalmic complication; E11.22 Type 2 diabetes mellitus with diabetic chronic kidney disease; I12.9 Hypertensive chronic kidney disease with stage 1 through stage 4 chronic kidney disease, or unspecified chronic kidney disease; R13.12 Dysphagia, oropharyngeal phase; F03.90 Unspecified dementia, unspecified severity, without behavioral disturbance, psychotic disturbance, mood disturbance, and anxiety; D63.1 Anemia in chronic kidney disease; Z79.4 Long term (current) use of insulin; Z79.899 Other long term (current) drug therapy
CPT/HCPCS: 36415; 36416; 36430; 36556; 71045; 80048; 80053; 80076; 80202; 81003; 81015; 82274; 82533; 82728; 83540; 83550; 83605; 83630; 83735; 83880; 84100; 84132; 84145; 84443; 84484; 85025; 85046; 85610; 85730; 86140; 86850; 86900; 86901; 87040; 87086; 87324; 87449; 87505; 87811; 93005; 94760; 96365; 96366; 96368; C9113; J0360; J0692; J0696; J1650; J1815; J1956; J2272; J2543; J3370; J3475; J3480; J3490; J7050; J7120; P9016; S0028; U0002

== ENCOUNTER 2022-11-23 01:30 | Emergency (ER) | payer MEDICARE, MEDICAID ==
[2022-11-23 02:05] LABS: #Basophils 0.1 10x3/uL (0.0-0.2); #Eosinphils 0.8 10x3/uL (0.0-0.5); #Monocytes 1.2 10x3/uL (0.0-1.1); #Neutrophils 8.1 10x3/uL (1.5-8.4); %Basophils 0.5 % (0.0-2.0); %Eosinophils 6.7 % (0.0-6.0); %Lymphocytes 16.7 % (18.0-47.0); %Monocytes 9.8 % (0.0-10.0); %Neutrophils 65.9 % (40.0-75.0); Hemoglobin 7.4 g/dL (13.5-17.5); Mean Corpuscular HGB CONC 33.9 g/dL (32.0-36.0); Mean Corpuscular Volume 91.2 fl (81.2-95.1); Mean Platelet Volume 9.1 fl (7.4-10.4); Platelet Count 360 10x3/uL (150-450); RBC Distribution Width 12.8 % (11.5-14.5); Red Blood Cell (RBC) Count 2.39 10x6/uL (4.32-5.72); White Blood Cell (WBC) Count 12.3 10x3/uL (3.5-10.5)
[2022-11-23 02:23] LABS: ALT (SGPT) 7 U/L (8-55); AST (SGOT) 13 U/L (5-34); Albumin 3.2 g/dL (3.4-4.8); Alkaline Phosphatase 127 U/L (40-110); Anion Gap 15 mmol/L (10-20); BUN (Urea Nitrogen) 29 mg/dL (8.4-25.7); Bilirubin, Total 0.3 mg/dL (0.2-1.2); Calc. Creatinine Clearance 0 mL/min (70-130); Calcium 8.2 mg/dL (7.8-10.44); Carbon Dioxide 20 mmol/L (23-31); Chloride 96 mmol/L (98-107); Estimated GFR 48; Globulin 2.7 g/dL (2.4-3.5); Glucose 218 mg/dL (83-110); Magnesium 1.6 mg/dL (1.6-2.6); Potassium 4.3 mmol/L (3.5-5.1); Protein, Total 5.9 g/dL (5.8-8.1); Sodium 127 mmol/L (136-145)
[2022-11-23 02:58] LABS: Bilirubin Neg (Negative); Blood, Urine 50 (Negative); Clarity Clear (Clear); Glucose, Urine (Dipstick) 100 mg/dL (Negative); Ketone, Urine Negative (Negative); Leukocyte 500 (Negative); Nitrite Negative (Negative); Protein, Urine (Dipstick) 100 mg/dl (Neg-Trace); Urobilinogen Normal mg/dL (Less than 2)
[2022-11-23 03:23] LABS: Bacteria/HPF 2+ HPF (None Seen); Squamous Epithelial 0-3 HPF (0-3)
[2022-11-23] MEDS ORDERED: Iopamidol 370 76% 100 ML VIAL ONE (10:19)
[2022-11-28] MEDS ORDERED: Dextrose 5% in Water 1,000 ML IV PRN (19:48)
[2022-11-28] MEDS ORDERED: HumaLOG 300 UNITS/3 ML VIAL SC PRN (19:48)
[2022-11-28] MEDS ORDERED: Acetaminophen 325 MG TAB PO PRN (19:48)
[2022-11-28] MEDS ORDERED: Senokot S 8.6-50 MG TAB PO PRN (19:48)
[2022-11-28] MEDS ORDERED: Calcium Carbonate 500 MG ChewTAB PO PRN (19:48)
[2022-11-28] MEDS ORDERED: Dextrose 50% Abboject 50 ML SYRINGE SLOW IVP PRN (19:48)
[2022-11-28] MEDS ORDERED: Ondansetron PF 4 MG/2 ML Vial IVP PRN (19:48)
[2022-11-28] MEDS ORDERED: Guaifenesin DM 100-10/5 ML UDCUP PO PRN (19:48)
[2022-11-28] MEDS ORDERED: Albumin 25% 25 GM/100 ML BOT IVPB SCH (20:00)
[2022-11-28] MEDS ORDERED: Sodium Chloride 0.9% 250 ML IV SCH (20:00)
[2022-11-28] MEDS ORDERED: Magnesium 2 GM/50 ML(in water) 2 GM in Premix Bag 1 BAG IVPB SCH (20:00)
[2022-11-28] MEDS ORDERED: Famotidine 20 MG TAB PO SCH (21:00)
[2022-11-28] MEDS ORDERED: Atorvastatin Calcium 20 MG TAB PO SCH (21:00)
[2022-11-28] MEDS ORDERED: Magnesium Oxide 400 MG TAB PO SCH (21:00)
[2022-11-29] MEDS ORDERED: Carvedilol 12.5 MG TAB PO SCH (08:00)
[2022-11-29] MEDS ORDERED: SITAGLIPTIN PHOSPHATE 50 MG PO SCH (09:00)
== END 2022-11-23 06:45 | disposition home or self-care (01) ==
LOC: CSHERS 01:30
DX: R06.02 Shortness of breath (principal); D72.829 Elevated white blood cell count, unspecified; E11.22 Type 2 diabetes mellitus with diabetic chronic kidney disease; N18.9 Chronic kidney disease, unspecified; I12.9 Hypertensive chronic kidney disease with stage 1 through stage 4 chronic kidney disease, or unspecified chronic kidney disease; E78.5 Hyperlipidemia, unspecified; Z79.899 Other long term (current) drug therapy
CPT/HCPCS: 36415; 71045; 71275; 80053; 81003; 81015; 83735; 83880; 84484; 85025; 85379; 93005; Q9967

== ENCOUNTER 2022-11-28 16:21 | Inpatient (IN) | payer MEDICARE, MEDICAID ==
[2022-11-28 17:48] LABS: ALT (SGPT) 17 U/L (8-55); AST (SGOT) 26 U/L (5-34); Alkaline Phosphatase 100 U/L (40-110); Anion Gap 14 mmol/L (10-20); BUN (Urea Nitrogen) 33 mg/dL (8.4-25.7); Bilirubin, Total 0.5 mg/dL (0.2-1.2); Calc. Creatinine Clearance 0 mL/min (70-130); Calcium 8.1 mg/dL (7.8-10.44); Carbon Dioxide 20 mmol/L (23-31); Chloride 96 mmol/L (98-107); Estimated GFR 44; Glucose 199 mg/dL (83-110); Magnesium 1.2 mg/dL (1.6-2.6); Potassium 4.5 mmol/L (3.5-5.1); Sodium 125 mmol/L (136-145)
[2022-11-28 17:49] LABS: #Eosinphils 0.3 10x3/uL (0.0-0.5); #Monocytes 1.4 10x3/uL (0.0-1.1); #Neutrophils 7.8 10x3/uL (1.5-8.4); %Basophils 0.3 % (0.0-2.0); %Eosinophils 3.1 % (0.0-6.0); %Lymphocytes 13.4 % (18.0-47.0); %Monocytes 12.2 % (0.0-10.0); %Neutrophils 70.5 % (40.0-75.0); Hemoglobin 7.6 g/dL (13.5-17.5); Mean Corpuscular HGB CONC 33.6 g/dL (32.0-36.0); Mean Corpuscular Hemoglobin 30.6 pg (27.0-33.0); Mean Corpuscular Volume 91.1 fl (81.2-95.1); Mean Platelet Volume 9.4 fl (7.4-10.4); Platelet Count 293 10x3/uL (150-450); RBC Distribution Width 12.8 % (11.5-14.5); Red Blood Cell (RBC) Count 2.48 10x6/uL (4.32-5.72); White Blood Cell (WBC) Count 11.1 10x3/uL (3.5-10.5)
[2022-11-28] MEDS ORDERED: Magnesium 2 GM/50 ML BAG (IN WATER) ONE ×2 (18:51→21:50)
[2022-11-28] MEDS ORDERED: Lisinopril 10 MG TAB ONE (18:51)
[2022-11-28] MEDS ORDERED: Ondansetron PF 4 MG/2 ML Vial IVP PRN (19:56)
[2022-11-28] MEDS ORDERED: Dextrose 5% in Water 1,000 ML IV PRN (19:56)
[2022-11-28] MEDS ORDERED: Guaifenesin DM 100-10/5 ML UDCUP PO PRN (19:56)
[2022-11-28] MEDS ORDERED: Senokot S 8.6-50 MG TAB PO PRN (19:56)
[2022-11-28] MEDS ORDERED: HumaLOG 300 UNITS/3 ML VIAL SC PRN (19:56)
[2022-11-28] MEDS ORDERED: Dextrose 50% Abboject 50 ML SYRINGE SLOW IVP PRN (19:56)
[2022-11-28] MEDS ORDERED: Calcium Carbonate 500 MG ChewTAB PO PRN (19:56)
[2022-11-28] MEDS ORDERED: hydrALAZINE 25 MG TAB PO SCH (21:00)
[2022-11-28] MEDS ORDERED: Famotidine 20 MG TAB PO SCH (21:00)
[2022-11-28] MEDS ORDERED: Isosorbide Dinitrate 10 MG TAB PO SCH (21:00)
[2022-11-28] MEDS ORDERED: Sodium Chloride 0.9% 250 ML IV SCH (21:30)
[2022-11-28] MEDS ORDERED: hydrALAZINE 25 MG TAB ONE (21:50)
[2022-11-28] MEDS ORDERED: Albumin 25% 100 ML ONE (21:51)
[2022-11-28] MEDS ORDERED: Famotidine 20 MG TAB ONE (21:51)
[2022-11-28] MEDS ORDERED: Magnesium 2 GM/50 ML(in water) 2 GM in Premix Bag 1 BAG IVPB SCH (22:00)
[2022-11-28] MEDS: Albumin 25% 25 GM/100 ML BOT IVPB SCH (22:12)
[2022-11-28] MEDS ORDERED: Ziprasidone 20 MG VIAL ONE (22:15)
[2022-11-28] MEDS ORDERED: Sterile Water 10 ML ONE (22:16)
[2022-11-28] MEDS: Atorvastatin Calcium 20 MG TAB PO SCH (22:37)
[2022-11-28] MEDS: Lantus 1000 UNITS/10 ML VIAL SC SCH (22:39)
[2022-11-28] MEDS: Magnesium Oxide 400 MG TAB PO SCH (22:39)
[2022-11-29] MEDS ORDERED: Acetaminophen 325 MG TAB ONE (00:02)
[2022-11-29] MEDS: Acetaminophen 325 MG TAB PO PRN (00:06)
[2022-11-29] MEDS ORDERED: Sodium Chloride 0.9% 500 ML IV SCH ×3 (02:30→03:00)
[2022-11-29] MEDS ORDERED: cefTRIAXone (ROCEPHIN) 2 GM VIAL ONE (02:49)
[2022-11-29 02:50] LABS: Bilirubin Neg (Negative); Blood, Urine 250 (Negative); Clarity Clear (Clear); Glucose, Urine (Dipstick) 100 mg/dL (Negative); Ketone, Urine Negative (Negative); Leukocyte 500 (Negative); Nitrite Negative (Negative); Protein, Urine (Dipstick) 100 mg/dl (Neg-Trace); Urobilinogen Normal mg/dL (Less than 2)
[2022-11-29 02:59] LABS: #Eosinphils 0.2 10x3/uL (0.0-0.5); #Monocytes 0.7 10x3/uL (0.0-1.1); #Neutrophils 4.6 10x3/uL (1.5-8.4); %Basophils 0.3 % (0.0-2.0); %Eosinophils 2.3 % (0.0-6.0); %Lymphocytes 15.7 % (18.0-47.0); %Monocytes 10.6 % (0.0-10.0); %Neutrophils 70.8 % (40.0-75.0); Mean Corpuscular HGB CONC 34.1 g/dL (32.0-36.0); Mean Corpuscular Hemoglobin 30.3 pg (27.0-33.0); Mean Corpuscular Volume 88.9 fl (81.2-95.1); Mean Platelet Volume 8.6 fl (7.4-10.4); Platelet Count 210 10x3/uL (150-450); Red Blood Cell (RBC) Count 1.98 10x6/uL (4.32-5.72); White Blood Cell (WBC) Count 6.5 10x3/uL (3.5-10.5)
[2022-11-29] MEDS: cefTRIAXone\\ROCEPHIN 2 GM in Sodium Chloride 0.9% 100 ML IVPB SCH (02:59)
[2022-11-29 03:03] LABS: Bacteria/HPF Rare-Few HPF (None Seen); Squamous Epithelial 0-3 HPF (0-3)
[2022-11-29] MEDS ORDERED: Albumin 25% 100 ML ONE (03:03)
[2022-11-29 03:06] LABS: Actual Bicarbonate (HCO3v) 23.4 mEq/L (22-28); Base Excess -0.5 mEq/L (-2 - +2); Calcium, Ionized (venous) 1.09 mmol/L (1.16-1.32); Chloride (VBG) 97 mmol/L (98-106); Hematocrit-VBG 20 % (42.0-52.0); Hemoglobin (Hb) 6.8 g/dL (12.6-17.4); Potassium (VBG) 3.71 mmol/L (3.70-5.30); Puncture Site Other Site; RapidComm Collect By LAB.YY; Sodium 124.5 mmol/L (133-146); pH (venous) 7.449 (7.32-7.43)
[2022-11-29] MEDS: Albumin 25% 25 GM/100 ML BOT IVPB SCH (03:11)
[2022-11-29 03:16] LABS: ALT (SGPT) 14 U/L (8-55); AST (SGOT) 12 U/L (5-34); Albumin 2.8 g/dL (3.4-4.8); Alkaline Phosphatase 65 U/L (40-110); Anion Gap 10 mmol/L (10-20); BUN (Urea Nitrogen) 30 mg/dL (8.4-25.7); Bilirubin, Total 0.4 mg/dL (0.2-1.2); Calc. Creatinine Clearance 39 mL/min (70-130); Calcium 8.1 mg/dL (7.8-10.44); Carbon Dioxide 22 mmol/L (23-31); Chloride 100 mmol/L (98-107); Estimated GFR 44; Globulin 2.4 g/dL (2.4-3.5); Glucose 164 mg/dL (83-110); Potassium 3.8 mmol/L (3.5-5.1); Protein, Total 5.2 g/dL (5.8-8.1); Sodium 128 mmol/L (136-145)
[2022-11-29 03:17] LABS: Iron 19 ug/dL (65-175); Iron Binding Capacity, Total 138 mcg/dL (261-462); Magnesium 2.2 mg/dL (1.6-2.6)
[2022-11-29] MEDS ORDERED: Pantoprazole 40 MG VIAL ONE (03:30)
[2022-11-29 03:33] LABS: CKMB 1.4 ng/mL (0-6.6)
[2022-11-29] MEDS: Pantoprazole 40 MG VIAL IVP SCH ×2 (03:36→16:25)
[2022-11-29 03:39] LABS: Ferritin 269.81 ng/mL (22-322)
[2022-11-29] MEDS ORDERED: Carvedilol 12.5 MG TAB PO SCH (08:00)
[2022-11-29] MEDS: Alogliptin 6.25 MG TAB PO SCH (08:01)
[2022-11-29] MEDS: Magnesium Oxide 400 MG TAB PO SCH ×2 (08:05→20:37)
[2022-11-29] MEDS: Fluconazole 100 MG TAB PO SCH (08:05)
[2022-11-29 08:06] LABS: CKMB 1.5 ng/mL (0-6.6)
[2022-11-29] MEDS: Multivitamin W/ Minerals 1 TAB PO SCH (08:06)
[2022-11-29] MEDS ORDERED: Amlodipine 5 MG TAB PO SCH (11:00)
[2022-11-29 11:17] LABS: #Eosinphils 0.1 10x3/uL (0.0-0.5); #Monocytes 0.9 10x3/uL (0.0-1.1); #Neutrophils 6.1 10x3/uL (1.5-8.4); %Basophils 0.4 % (0.0-2.0); %Eosinophils 1.4 % (0.0-6.0); %Lymphocytes 12.8 % (18.0-47.0); %Monocytes 10.7 % (0.0-10.0); %Neutrophils 74.3 % (40.0-75.0); Hemoglobin 8.6 g/dL (13.5-17.5); Mean Corpuscular HGB CONC 34.1 g/dL (32.0-36.0); Mean Corpuscular Hemoglobin 30.8 pg (27.0-33.0); Mean Corpuscular Volume 90.3 fl (81.2-95.1); Mean Platelet Volume 9.1 fl (7.4-10.4); Platelet Count 266 10x3/uL (150-450); RBC Distribution Width 12.9 % (11.5-14.5); Red Blood Cell (RBC) Count 2.79 10x6/uL (4.32-5.72); White Blood Cell (WBC) Count 8.1 10x3/uL (3.5-10.5)
[2022-11-29 11:32] LABS: Anion Gap 13 mmol/L (10-20); BUN (Urea Nitrogen) 28 mg/dL (8.4-25.7); Calc. Creatinine Clearance 40 mL/min (70-130); Calcium 8.5 mg/dL (7.8-10.44); Carbon Dioxide 20 mmol/L (23-31); Chloride 103 mmol/L (98-107); Estimated GFR 46; Glucose 108 mg/dL (83-110); Potassium 3.9 mmol/L (3.5-5.1); Sodium 132 mmol/L (136-145)
[2022-11-29 11:53] LABS: CKMB 1.6 ng/mL (0-6.6)
[2022-11-29 13:49] LABS: Potassium, Urine 16.4 mmol/L
[2022-11-29 16:18] LABS: Hemoglobin 9.3 g/dL (13.5-17.5)
[2022-11-29] MEDS: Carvedilol 6.25 MG TAB PO SCH (16:25)
[2022-11-29 16:29] LABS: Anion Gap 12 mmol/L (10-20); BUN (Urea Nitrogen) 26 mg/dL (8.4-25.7); Calc. Creatinine Clearance 42 mL/min (70-130); Calcium 8.3 mg/dL (7.8-10.44); Carbon Dioxide 21 mmol/L (23-31); Chloride 101 mmol/L (98-107); Estimated GFR 48; Glucose 124 mg/dL (83-110); Potassium 3.8 mmol/L (3.5-5.1); Sodium 130 mmol/L (136-145)
[2022-11-29] MEDS: Lantus 1000 UNITS/10 ML VIAL SC SCH (20:36)
[2022-11-29] MEDS: Atorvastatin Calcium 20 MG TAB PO SCH (20:37)
[2022-11-30] MEDS: cefTRIAXone\\ROCEPHIN 2 GM in Sodium Chloride 0.9% 100 ML IVPB SCH (03:17)
[2022-11-30] MEDS: Pantoprazole 40 MG VIAL IVP SCH (03:17)
[2022-11-30 04:48] LABS: Hemoglobin 9.4 g/dL (13.5-17.5); Mean Corpuscular HGB CONC 35.2 g/dL (32.0-36.0); Mean Corpuscular Hemoglobin 30.9 pg (27.0-33.0); Mean Corpuscular Volume 87.8 fl (81.2-95.1); Mean Platelet Volume 9.3 fl (7.4-10.4); Platelet Count 237 10x3/uL (150-450); RBC Distribution Width 13.2 % (11.5-14.5); Red Blood Cell (RBC) Count 3.04 10x6/uL (4.32-5.72); White Blood Cell (WBC) Count 8.4 10x3/uL (3.5-10.5)
[2022-11-30 04:54] LABS: Anion Gap 14 mmol/L (10-20); BUN (Urea Nitrogen) 27 mg/dL (8.4-25.7); Calc. Creatinine Clearance 41 mL/min (70-130); Calcium 8.3 mg/dL (7.8-10.44); Carbon Dioxide 21 mmol/L (23-31); Chloride 102 mmol/L (98-107); Estimated GFR 47; Glucose 77 mg/dL (83-110); Magnesium 2.1 mg/dL (1.6-2.6); Potassium 3.5 mmol/L (3.5-5.1); Sodium 133 mmol/L (136-145)
[2022-11-30 05:41] LABS: MDiff Complete? YES
[2022-11-30 05:44] LABS: Eosinophils 3 % (0-10); Lymphocytes 20 % (21-51); Monocytes 16 % (0-10); Neutrophil 61 % (42-75)
[2022-11-30 05:45] LABS: Platelet Morphology Comment Appears Adequate
[2022-11-30 05:46] LABS: RBC Morphology Within Normal Limits
[2022-11-30] MEDS: Multivitamin W/ Minerals 1 TAB PO SCH (08:29)
[2022-11-30] MEDS: Ferrous Sulfate 325 MG TAB PO SCH (08:29)
[2022-11-30] MEDS: Alogliptin 6.25 MG TAB PO SCH (08:29)
[2022-11-30] MEDS: Fluconazole 100 MG TAB PO SCH (08:29)
[2022-11-30] MEDS: Magnesium Oxide 400 MG TAB PO SCH ×2 (08:29→20:08)
[2022-11-30] MEDS: Carvedilol 6.25 MG TAB PO SCH ×2 (08:30→17:30)
[2022-11-30] MEDS ORDERED: Amlodipine 5 MG TAB PO SCH ×2 (09:00→13:30)
[2022-11-30] MEDS ORDERED: hydrALAZINE 20 MG/ML VIAL SLOW IVP PRN (13:20)
[2022-11-30] MEDS: Acetaminophen 325 MG TAB PO PRN (14:51)
[2022-11-30] MEDS: Atorvastatin Calcium 20 MG TAB PO SCH (20:08)
[2022-11-30] MEDS ORDERED: Lantus 1000 UNITS/10 ML VIAL SC SCH (21:00)
[2022-12-01] MEDS: cefTRIAXone\\ROCEPHIN 2 GM in Sodium Chloride 0.9% 100 ML IVPB SCH (03:58)
[2022-12-01 05:36] VITALS: TEMP 98.1
[2022-12-01] MEDS: Ferrous Sulfate 325 MG TAB PO SCH (08:06)
[2022-12-01] MEDS: Alogliptin 6.25 MG TAB PO SCH (08:06)
[2022-12-01] MEDS: Magnesium Oxide 400 MG TAB PO SCH (08:07)
[2022-12-01] MEDS: Multivitamin W/ Minerals 1 TAB PO SCH (08:07)
[2022-12-01] MEDS: Fluconazole 100 MG TAB PO SCH (08:07)
[2022-12-01] MEDS: Carvedilol 6.25 MG TAB PO SCH (08:07)
[2022-12-01] MEDS: Acetaminophen 325 MG TAB PO PRN ×2 (08:08→11:17)
[2022-12-01 08:09] VITALS: BP 120/97
[2022-12-01] MEDS ORDERED: Amlodipine 5 MG TAB PO SCH ×2 (09:00)
== END 2022-12-01 15:00 | disposition home or self-care (01) | DRG 644 ==
LOC: CSHERS 16:21 → CSHERHOLD 20:21 → CSHICU 11-29 04:23
PROVIDERS: ADMIT Student in an Organized Health Care Education/Training Program; ATTEND Family Medicine
PROC: 30233J1 Transfusion of Nonautologous Serum Albumin into Peripheral Vein, Percutaneous Approach (ICD-10-PCS; 2022-11-28)
PROC: 30233N1 Transfusion of Nonautologous Red Blood Cells into Peripheral Vein, Percutaneous Approach (ICD-10-PCS; 2022-11-29)
PROC: 0T2BX0Z Change Drainage Device in Bladder, External Approach (ICD-10-PCS; principal; 2022-11-30)
DX: E22.2 Syndrome of inappropriate secretion of antidiuretic hormone (principal); N17.9 Acute kidney failure, unspecified; R78.81 Bacteremia; N39.0 Urinary tract infection, site not specified; F03.90 Unspecified dementia, unspecified severity, without behavioral disturbance, psychotic disturbance, mood disturbance, and anxiety; E83.42 Hypomagnesemia; E78.5 Hyperlipidemia, unspecified; E86.0 Dehydration; E88.09 Other disorders of plasma-protein metabolism, not elsewhere classified; D63.1 Anemia in chronic kidney disease; I12.9 Hypertensive chronic kidney disease with stage 1 through stage 4 chronic kidney disease, or unspecified chronic kidney disease; E11.22 Type 2 diabetes mellitus with diabetic chronic kidney disease; I25.10 Atherosclerotic heart disease of native coronary artery without angina pectoris; K21.9 Gastro-esophageal reflux disease without esophagitis; F32.A Depression, unspecified; D50.9 Iron deficiency anemia, unspecified; N18.30 Chronic kidney disease, stage 3 unspecified; B96.4 Proteus (mirabilis) (morganii) as the cause of diseases classified elsewhere; Z79.899 Other long term (current) drug therapy; Z98.890 Other specified postprocedural states; Z89.421 Acquired absence of other right toe(s)
CPT/HCPCS: 36415; 36416; 36430; 70450; 71045; 80048; 80053; 81001; 82274; 82436; 82553; 82607; 82728; 82805; 83036; 83540; 83550; 83605; 83735; 83930; 83935; 84100; 84133; 84300; 84443; 84484; 85025; 86850; 86900; 86901; 87040; 87077; 87086; 87186; 93005; 93010; 93306; C9113; J0696; J1815; J3475; J3486; J3490; J7030; P9016; P9047

== ENCOUNTER 2023-02-23 17:18 | Inpatient (IN) | payer MEDICARE, MEDICAID ==
[2023-02-23 19:03] LABS: SARS-CoV-2 NAA Rapid Test Not Detected (NotDetected)
[2023-02-23] MEDS ORDERED: Acetaminophen 650 MG Suppository ONE (19:24)
[2023-02-23] MEDS ORDERED: cefTRIAXone (ROCEPHIN) 2 GM VIAL ONE (19:25)
[2023-02-23 19:29] LABS: Hemoglobin 8.7 g/dL (13.5-17.5); MDiff Complete? YES; Mean Corpuscular Hemoglobin 31.6 pg (27.0-33.0); Mean Corpuscular Volume 93.1 fl (81.2-95.1); Mean Platelet Volume 9.7 fl (7.4-10.4); Platelet Count 546 10x3/uL (150-450); RBC Distribution Width 13.2 % (11.5-14.5); Red Blood Cell (RBC) Count 2.75 10x6/uL (4.32-5.72); White Blood Cell (WBC) Count 23.7 10x3/uL (3.5-10.5)
[2023-02-23 19:35] LABS: ALT (SGPT) 10 U/L (8-55); AST (SGOT) 9 U/L (5-34); Albumin 2.4 g/dL (3.4-4.8); Alkaline Phosphatase 76 U/L (40-110); Anion Gap 20 mmol/L (10-20); BUN (Urea Nitrogen) 84 mg/dL (8.4-25.7); Bilirubin, Total 0.5 mg/dL (0.2-1.2); Calc. Creatinine Clearance 0 mL/min (70-130); Calcium 8.6 mg/dL (7.8-10.44); Carbon Dioxide 13 mmol/L (23-31); Chloride 107 mmol/L (98-107); Estimated GFR 22; Globulin 3.9 g/dL (2.4-3.5); Potassium 4.9 mmol/L (3.5-5.1); Protein, Total 6.3 g/dL (5.8-8.1); Sodium 135 mmol/L (136-145)
[2023-02-23 19:41] LABS: Glucose 508 mg/dL (83-110)
[2023-02-23 20:04] LABS: Band 8 % (5-11); Lymphocytes 3 % (21-51); Metamyelocyte 6 % (0-0); Monocytes 2 % (0-10); Myelocyte 3 % (0-0); Neutrophil 77 % (42-75); Reactive Lymphocytes 1 % (0-10)
[2023-02-23 20:05] LABS: Platelet Adequacy Comment Appears Increased
[2023-02-23 20:07] LABS: CKMB 1.1 ng/mL (0-6.6)
[2023-02-23] MEDS ORDERED: Azithromycin 500 MG VIAL ONE (20:42)
[2023-02-23 20:45] LABS: Bilirubin Neg (Negative); Blood, Urine 250 (Negative); Clarity Cloudy (Clear); Glucose, Urine (Dipstick) 100 mg/dL (Negative); Ketone, Urine 5 mg/dL (Negative); Leukocyte 500 (Negative); Nitrite Negative (Negative); Protein, Urine (Dipstick) 500 mg/dl (Neg-Trace); Specific Gravity, Urine 1.015 (1.005-1.030); Urobilinogen Normal mg/dL (Less than 2)
[2023-02-23 20:52] LABS: Bacteria/HPF 3+ HPF (None Seen); CAUTI Indications for Culture Alt mental st,lethar; Squamous Epithelial 0-3 HPF (0-3); WBC/HPF Greater Than 50 HPF (0-3)
[2023-02-23 20:59] LABS: Urine Culture Reflex Yes Yes
[2023-02-23] MEDS ORDERED: Insulin Regular 300 UNITS/3 ML VIAL ONE (21:07)
[2023-02-23] MEDS ORDERED: INSULIN REGULAR IN 0.9 % NACL 100 UNITS/100 ML BAG ONE (21:16)
[2023-02-23] MEDS ORDERED: Vancomycin 1 GM VIAL ONE (21:37)
[2023-02-23] MEDS ORDERED: Guaifenesin DM 100-10/5 ML UDCUP PO PRN (22:36)
[2023-02-23] MEDS ORDERED: Dextrose 50% Abboject 50 ML SYRINGE SLOW IVP PRN (22:36)
[2023-02-23] MEDS ORDERED: Acetaminophen 325 MG TAB PO PRN (22:36)
[2023-02-23] MEDS ORDERED: Glucagon 1 MG/ML KIT IM PRN (22:36)
[2023-02-23] MEDS ORDERED: Dextrose 5% in Water 1,000 ML IV PRN (22:36)
[2023-02-23] MEDS ORDERED: Ondansetron PF 4 MG/2 ML Vial IVP PRN (22:36)
[2023-02-23] MEDS ORDERED: Calcium Carbonate 500 MG ChewTAB PO PRN (22:36)
[2023-02-23] MEDS ORDERED: Artificial Tear Sol 15 ML BOT EA EYE PRN (22:43)
[2023-02-23] MEDS ORDERED: Meropenem 500 MG in Sodium Chloride 0.9% 100 ML IVPB SCH (22:45)
[2023-02-23] MEDS ORDERED: Vancomycin 1 GM in Premix Bag 1 BAG IVPB SCH (22:45)
[2023-02-23] MEDS ORDERED: INSULIN REGULAR IN 0.9 % NACL 100 UNITS in Premix Bag 1 BAG IVPB SCH (23:30)
[2023-02-23] MEDS ORDERED: Lactated Ringer's 500 ML IV SCH (23:30)
[2023-02-23 23:31] LABS: Legionella Urinary Ag Negative (Negative)
[2023-02-23] MEDS: Pantoprazole 40 MG VIAL IVP SCH (23:42)
[2023-02-23 23:43] LABS: Strep pneumo Urine Ag POSITIVE (NEGATIVE)
[2023-02-23] MEDS ORDERED: Vancomycin Dose by Levels Sliding Scale (Wt <71) FS SCH (23:45)
[2023-02-23 23:49] VITALS: BMI 18.4
[2023-02-23] MEDS ORDERED: Meropenem 1 GM in Sodium Chloride 0.9% 100 ML IVPB SCH (23:59)
[2023-02-23] MEDS ORDERED: Lactated Ringer's 1,000 ML IV SCH (23:59)
[2023-02-24] MEDS: Dextrose 5 %-0.45 % NaCl 1,000 ML IV SCH ×5 (00:23→22:39)
[2023-02-24] MEDS: Albumin 25% 25 GM/100 ML BOT IVPB SCH ×2 (01:13→05:57)
[2023-02-24 03:54] LABS: Hemoglobin 7.3 g/dL (13.5-17.5); MDiff Complete? YES; Mean Corpuscular HGB CONC 32.3 g/dL (32.0-36.0); Mean Corpuscular Hemoglobin 30.9 pg (27.0-33.0); Mean Corpuscular Volume 95.8 fl (81.2-95.1); Mean Platelet Volume 9.4 fl (7.4-10.4); Platelet Count 473 10x3/uL (150-450); RBC Distribution Width 13.3 % (11.5-14.5); Red Blood Cell (RBC) Count 2.36 10x6/uL (4.32-5.72); White Blood Cell (WBC) Count 20.6 10x3/uL (3.5-10.5)
[2023-02-24 04:12] LABS: ALT (SGPT) 9 U/L (8-55); AST (SGOT) 16 U/L (5-34); Albumin 2.6 g/dL (3.4-4.8); Alkaline Phosphatase 60 U/L (40-110); Anion Gap 17 mmol/L (10-20); BUN (Urea Nitrogen) 84 mg/dL (8.4-25.7); Bilirubin, Total 0.2 mg/dL (0.2-1.2); Calc. Creatinine Clearance 17 mL/min (70-130); Calcium 8.3 mg/dL (7.8-10.44); Carbon Dioxide 14 mmol/L (23-31); Chloride 116 mmol/L (98-107); Estimated GFR 26; Glucose 87 mg/dL (83-110); Potassium 3.9 mmol/L (3.5-5.1); Protein, Total 5.6 g/dL (5.8-8.1); Sodium 143 mmol/L (136-145)
[2023-02-24 04:20] LABS: Band 20 % (5-11); Lymphocytes 2 % (21-51); Metamyelocyte 13 % (0-0); Monocytes 4 % (0-10); Myelocyte 2 % (0-0); Neutrophil 58 % (42-75); Reactive Lymphocytes 1 % (0-10)
[2023-02-24 04:21] LABS: Hypochromia SLIGHT = 6-15 cells (100X) (0-5/hpf); Platelet Adequacy Comment Appears Increased
[2023-02-24 07:49] LABS: Hemoglobin 7.8 g/dL (13.5-17.5); Mean Corpuscular HGB CONC 32.5 g/dL (32.0-36.0); Mean Corpuscular Hemoglobin 29.8 pg (27.0-33.0); Mean Corpuscular Volume 91.6 fl (81.2-95.1); Platelet Count 362 10x3/uL (150-450); RBC Distribution Width 14.4 % (11.5-14.5); Red Blood Cell (RBC) Count 2.62 10x6/uL (4.32-5.72); White Blood Cell (WBC) Count 19.5 10x3/uL (3.5-10.5)
[2023-02-24] MEDS: Meropenem 500 MG in Sodium Chloride 0.9% 100 ML IVPB SCH ×2 (07:50→20:01)
[2023-02-24 07:54] LABS: Anion Gap 16 mmol/L (10-20); BUN (Urea Nitrogen) 82 mg/dL (8.4-25.7); Calc. Creatinine Clearance 19 mL/min (70-130); Calcium 8.2 mg/dL (7.8-10.44); Carbon Dioxide 15 mmol/L (23-31); Chloride 115 mmol/L (98-107); Estimated GFR 28; Glucose 133 mg/dL (83-110); Potassium 3.8 mmol/L (3.5-5.1); Sodium 142 mmol/L (136-145)
[2023-02-24 08:04] LABS: MDiff Complete? YES
[2023-02-24 08:08] LABS: Band 30 % (5-11); Lymphocytes 10 % (21-51); Neutrophil 56 % (42-75)
[2023-02-24 08:09] LABS: Monocytes 4 % (0-10); Platelet Adequacy Comment Appears Adequate
[2023-02-24 08:10] LABS: Burr Cells SLIGHT = 2-5 cells (100X) (0-1/hpf); Ovalocytes SLIGHT = 2-5 cells (100X) (0-1/hpf)
[2023-02-24] MEDS: Pantoprazole 40 MG VIAL IVP SCH ×2 (10:56→22:38)
[2023-02-24] MEDS: HumaLOG 300 UNITS/3 ML VIAL SC PRN ×3 (11:45→20:16)
[2023-02-24] MEDS ORDERED: Morphine 2 MG/ML VIAL SLOW IVP SCH (22:00)
[2023-02-24 22:55] LABS: Vancomycin, Random 9.4 ug/mL (See Comment)
[2023-02-24] MEDS ORDERED: Vancomycin HCl 750 MG in Sodium Chloride 0.9% 250 ML 250 ML IVPB SCH (23:30)
[2023-02-25] MEDS ORDERED: Vancomycin HCl 750 MG in Sodium Chloride 0.9% 250 ML 250 ML IVPB SCH (01:30)
[2023-02-25] MEDS ORDERED: Morphine 2 MG/ML VIAL SLOW IVP SCH (03:30)
[2023-02-25] MEDS: HumaLOG 300 UNITS/3 ML VIAL SC PRN ×2 (03:46→09:08)
[2023-02-25] MEDS: Meropenem 500 MG in Sodium Chloride 0.9% 100 ML IVPB SCH (08:45)
[2023-02-25 10:27] VITALS: BP 126/63; TEMP 98.9
== END 2023-02-25 11:05 | disposition hospice, home (50) | DRG 871 ==
LOC: CSHERS 17:18 → CSHIMCU 23:00
PROVIDERS: ADMIT Student in an Organized Health Care Education/Training Program; ATTEND Internal Medicine
PROC: 0T2BX0Z Change Drainage Device in Bladder, External Approach (ICD-10-PCS; principal; 2023-02-23)
PROC: 3E03329 Introduction of Other Anti-infective into Peripheral Vein, Percutaneous Approach (ICD-10-PCS; 2023-02-23)
PROC: 30233N1 Transfusion of Nonautologous Red Blood Cells into Peripheral Vein, Percutaneous Approach (ICD-10-PCS; 2023-02-24)
PROC: 30233J1 Transfusion of Nonautologous Serum Albumin into Peripheral Vein, Percutaneous Approach (ICD-10-PCS; 2023-02-24)
DX: A41.9 Sepsis, unspecified organism (principal); G93.41 Metabolic encephalopathy; J18.9 Pneumonia, unspecified organism; J96.01 Acute respiratory failure with hypoxia; N39.0 Urinary tract infection, site not specified; J91.8 Pleural effusion in other conditions classified elsewhere; Z68.1 Body mass index [BMI] 19.9 or less, adult; N17.9 Acute kidney failure, unspecified; T83.510A Infection and inflammatory reaction due to cystostomy catheter, initial encounter; E87.20 Acidosis, unspecified; E46 Unspecified protein-calorie malnutrition; R64 Cachexia; Z66 Do not resuscitate; Z51.5 Encounter for palliative care; E78.5 Hyperlipidemia, unspecified; R62.7 Adult failure to thrive; Y83.8 Other surgical procedures as the cause of abnormal reaction of the patient, or of later complication, without mention of misadventure at the time of the procedure; N18.30 Chronic kidney disease, stage 3 unspecified; R77.8 Other specified abnormalities of plasma proteins; E11.22 Type 2 diabetes mellitus with diabetic chronic kidney disease; K21.9 Gastro-esophageal reflux disease without esophagitis; I25.10 Atherosclerotic heart disease of native coronary artery without angina pectoris; F32.A Depression, unspecified; F17.210 Nicotine dependence, cigarettes, uncomplicated; E86.0 Dehydration; D63.1 Anemia in chronic kidney disease; I12.9 Hypertensive chronic kidney disease with stage 1 through stage 4 chronic kidney disease, or unspecified chronic kidney disease; H54.8 Legal blindness, as defined in USA; Z20.822 Contact with and (suspected) exposure to COVID-19; Z79.899 Other long term (current) drug therapy; Z89.421 Acquired absence of other right toe(s)
CPT/HCPCS: 36415; 36416; 36430; 71045; 71250; 80053; 80202; 81001; 82274; 82553; 83605; 84484; 85025; 86850; 86900; 86901; 87040; 87077; 87086; 87186; 87324; 87449; 87899; 93005; 94760; 94762; C9113; J0456; J0696; J1815; J2185; J2272; J2405; J3370; J3490; J7042; J7050; J7120; P9016; P9047